=== PATIENT | female | born 1950 | race Caucasian/White ===

== ENCOUNTER 2019-10-13 09:27 | Outpatient (CLI) | payer MEDICARE, OTHER, SELFPAY ==
--- NOTE | ~2019-10-13 | US_ITS ---
EXAMINATION: US abdomen complete DATE: 10/13/2019 10:10 INDICATION: Liver cyst. TECHNIQUE: Multiple grayscale and Doppler ultrasound images of the abdomen were obtained. COMPARISON: CT abdomen and pelvis 08/22/2016 FINDINGS: The visualized portions of the head and body of the pancreas are normal. There is diffuse h epatic steatosis. The liver cyst seen on the prior CT is not visualized. There is normal flow in main portal vein. The gallbladder is normal in size. No gallstones or gallbladder wall thickening. There was no sonographic Michael sign. The common duct is normal and measures 5 mm. The kidneys are normal i n size. The spleen is normal in size. Abdominal aorta is normal in caliber. Inferior vena cava is nor mal. IMPRESSION: 1. Diffuse hepatic steatosis. Reviewed, dictated and finalized at location A.
== END 2019-10-13 09:28 | disposition home or self-care (01) ==
PROVIDERS: PCP Family Medicine; Visit Provider Physician Assistant Medical
DX: K76.89 Other specified diseases of liver (principal)
CPT/HCPCS: 76700

== ENCOUNTER 2019-11-02 10:09 | Outpatient (CLI) | payer MEDICARE, OTHER, SELFPAY ==
[2019-11-02 11:11] LABS: Add Urine Microscopic? YES; Appearance Urine Clear (Clear); Bilirubin Urine Negative (Negative); Blood Urine 1+ (Negative); Color Urine Yellow (Yellow); Glucose Urine UA Negative (Negative); Ketones Urine Trace mg/dL (Negative); Leukocyte Esterase Ur Negative LEU/UL (NEGATIVE); Mucus Urine Rare /lpf; Nitrate Urine Negative (Negative); Protein Urine Negative (Negative); RBC Urine 0-2 /hpf (0-2); Specific Grav Ur 1.013 (1.001-1.035); Squamous Epithelial Cell Urine Occasional /hpf (Few); Urobilinogen Urine Negative mg/dL (<2.0); WBC Urine 0-3 /hpf (0-3)
[2019-11-02 11:12] LABS: Albumin Level 4.1 g/dL (3.5-5.1); Blood Urea Nitrogen 19 mg/dL (7-17); Calcium 9.2 mg/dL (8.4-10.2); Carbon Dioxide 30 mmol/L (22-30); Chloride 106 mmol/L (98-107); Estimated Glomerular Filt Rate > 60; Glucose 99 mg/dL (65-105); Phosphorus 3.5 mg/dL (2.5-4.5); Potassium 4.6 mmol/L (3.4-5.0); Sodium 140 mmol/L (137-145)
== END 2019-11-02 10:10 | disposition home or self-care (01) ==
PROVIDERS: PCP Family Medicine; Visit Provider Internal Medicine Nephrology
DX: N20.0 Calculus of kidney (principal)
CPT/HCPCS: 36415; 80069; 81001

== ENCOUNTER 2019-11-02 10:15 | Outpatient (CLI) | payer MEDICARE, OTHER, SELFPAY ==
[2019-11-02 11:09] LABS: Alanine Aminotransferase 27 U/L (4-35); Albumin Level 4.1 g/dL (3.5-5.1); Alkaline Phosphatase 85 U/L (38-126); Aspartate Amino Transferase 37 U/L (14-36); Bilirubin,Total 0.6 mg/dL (0.2-1.3)
[2019-11-02 13:06] LABS: Hepatitis B Surface Antigen Negative (Negative)
[2019-11-02 13:12] LABS: HAV RESULT Negative (Negative); Hepatitis B Core IgM Result Negative (Negative)
[2019-11-02 13:24] LABS: Hepatitis C Virus Antibody Negative (Negative)
== END 2019-11-02 10:16 | disposition home or self-care (01) ==
PROVIDERS: PCP Family Medicine; Visit Provider Physician Assistant Medical
DX: R79.89 Other specified abnormal findings of blood chemistry (principal); K74.60 Unspecified cirrhosis of liver
CPT/HCPCS: 36415; 80069; 80074; 80076; 81001

== ENCOUNTER 2020-07-11 08:21 | Outpatient (CLI) | payer MEDICARE, OTHER, SELFPAY ==
[2020-07-11 09:13] LABS: Albumin Level 3.9 g/dL (3.5-5.1); Anion Gap 3 mmol/L (8-16); Blood Urea Nitrogen 23 mg/dL (7-17); Calcium 8.9 mg/dL (8.4-10.2); Carbon Dioxide 33 mmol/L (22-30); Chloride 106 mmol/L (98-107); Estimated Glomerular Filt Rate > 60; Glucose 99 mg/dL (65-105); Phosphorus 3.4 mg/dL (2.5-4.5); Potassium 4.9 mmol/L (3.4-5.0); Sodium 142 mmol/L (137-145)
[2020-07-11 09:14] LABS: Creatinine Urine 150.9 mg/dL; Total Protein Urine Random 10 mg/dL; Ur Ttl Prot Creatinine Ratio 0.07 mg/mg (0-0.20)
== END 2020-07-11 08:22 | disposition home or self-care (01) ==
PROVIDERS: PCP Family Medicine; Visit Provider Internal Medicine Nephrology
DX: N20.0 Calculus of kidney (principal)
CPT/HCPCS: 36415; 80069; 82570; 84156

== ENCOUNTER 2020-09-28 14:53 | Outpatient (CLI) | payer MEDICARE, OTHER, SELFPAY ==
--- NOTE | ~2020-09-28 | MR_ITS ---
EXAMINATION: MR wrist LT wo con DATE: 09/28/2020 15:49 INDICATION: Left wrist mass with pain and difficulty gripping with the left hand post prior cyst brian eve. TECHNIQUE: Magnetic resonance imaging (MRI) of the left wrist was performed without intravenous contr ast. Sequences performed include axial PD-weighted FSE and PD-weighted FS FSE, coronal PD-weighted FS FSE and T1-weighted SE, and sagittal PD-weighted FS FSE and PD-weighted FSE. COMPARISON: Left wrist radiographs dated 09/17/2020 FINDINGS: Intrinsic ligaments: The lunotriquetral ligament is normal. Increased signal in the central membranous portion of the scap holunate ligament consistent with partial tear. The dorsal and volar components appear to remain inta ct. Triangular fibrocartilage complex (TFCC): There is partial tear along the radial side as well as the ulnar articular surface of the central fib rocartilaginous disc of the triangular fibrocartilage complex. Additional partial tear at the foveal attachment. The ulnar styloid attachment and the dorsal and volar radioulnar ligaments remain normal. The ulnar collateral ligament, ulnotriquetral ligament and meniscal homologue are normal. The exten sor carpi ulnaris tendon sheath is normal. Extensor wrist: Extensor tendons of the wrist are normal. No tenosynovitis. Flexor wrist: The flexor tendons of the wrist are normal. No abnormality in the carpal tunnel with normal median n erve. Guyon's canal: Guyon's canal including the ulnar nerve and artery are normal. 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 There is mild cystic change along the volar rim of the scaphoid fossa of the distal radius along the footplate of the thickened palmar radiocarpal ligament. There is a multilobulated ganglion cyst arising along the palmar margin of the palmar radiocarpal ligament which extends approximately 2 .8 cm medial to lateral, 1.5 cm proximal to distal along the palmar aspect of the radial two thirds o f the distal radius and extending 1.6 cm deep to superficial between the abductor pollicis longus ten don and the flexor carpi radialis tendon. IMPRESSION: 1. Large multilobulated ganglion cyst at the palmar aspect of the distal radius arising along the kristopher tplate of the palmar radiocarpal ligament and extending over a distance of 2.8 x 1.5 x 1.6 cm. 2. Partial tear of the central fibrocartilaginous disc and foveal attachment of the triangular fibroc artilage complex. 3. Partial tear of the central component of the scapholunate ligament with intact dorsal and volar co mponents. 2. 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 Reviewed, dictated and finalized at location A. IMPRESSION: 1. Large multilobulated ganglion cyst at the palmar aspect of the distal radius arising along the footplate of the palmar radiocarpal ligament and extending o mariah a distance of 2.8 x 1.5 x 1.6 cm. 2. Partial tear of the central fibrocartilaginous disc and foveal attachment of the triangular fibrocartilage complex. 3. Partial tear of the central component of the scapholunate ligament with inta ct dorsal and volar components. 2. 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
== END 2020-09-28 14:54 | disposition home or self-care (01) ==
PROVIDERS: PCP Family Medicine; Visit Provider Orthopaedic Surgery
DX: M19.032 Primary osteoarthritis, left wrist (principal)
CPT/HCPCS: 73221

== ENCOUNTER 2020-11-14 09:26 | Outpatient (CLI) | payer MEDICARE, OTHER, SELFPAY ==
--- NOTE | 2020-11-14 09:47 | ECG_ITS ---
Measurements Intervals Spring Rate: 60 P: 16 NE: 183 QRS: -9 QRSD: 86 T: 8 QT: 420 QTc: 420 Interpretive Statements SINUS RHYTHM DELAYED PRECORDIAL R/S TRANSITION VOLTAGE CRITERIA FOR LVH BORDERLINE T WAVE ABNORMALITY- ANT/INF LEADS BORDERLINE ECG Electronically Signed On 11-14-2020 10:00:17 CDT by Getachew Polk D.O.
== END 2020-11-14 09:27 | disposition home or self-care (01) ==
LOC: ANHSURGERY 09:31
PROVIDERS: PCP Family Medicine; Visit Provider Orthopaedic Surgery
DX: Z01.810 Encounter for preprocedural cardiovascular examination (principal); E78.00 Pure hypercholesterolemia, unspecified
CPT/HCPCS: 93005

== ENCOUNTER → 2020-11-20 01:22 | Outpatient (CLI) | payer MEDICARE, OTHER, SELFPAY ==
[2020-11-21 15:37] LABS: SARS-CoV-2 RNA PCR Negative
== END ==
PROVIDERS: PCP Family Medicine; Visit Provider Orthopaedic Surgery
DX: Z01.812 Encounter for preprocedural laboratory examination (principal); Z20.822 Contact with and (suspected) exposure to COVID-19
CPT/HCPCS: C9803; U0003; U0005

== ENCOUNTER 2020-11-23 01:36 | Day surgery (SDC) | payer MEDICARE, OTHER, SELFPAY ==
[2020-11-12 10:23] VITALS: BMI 34.3
[2020-11-23] VITALS (7 sets, daily range): BP systolic 125–152; BP diastolic 62–85; PULSE 61–70; RESP 12–16; TEMP 35.7–36.2; O2SAT 94–100
[2020-11-23] MEDS: CELECOXIB 200 MG CAPSULE PO (06:25)
[2020-11-23] MEDS: ACETAMINOPHEN 500 MG TABLET 1000 MG PO (06:25)
[2020-11-23] MEDS: KETOROLAC 15 MG/ML VIAL (*BKC) IV PUSH (06:26)
[2020-11-23] MEDS: LACTATED RINGERS 1,000 ML 30 ML IV CONT ×2 (06:32→10:05)
--- NOTE | 2020-11-23 06:58 | WPDANESEPPF ---
Anes - Initial Pre Proc Eval Procedure: Operation Date: 11/23/20 07:30 Proposed Procedures p Excision Mass Left Wrist - Trav Becerra MD Date/Time: 11/23/20 06:58 Surgeon: Trav Becerra MD Pre Op Diagnosis: left wrist mass/ganglion cyst Patient Data Age: 70 Gender: F Height: 1.63 m Weight: 90.75 kg Allergies Allergy/AdvReac Type Severity Reaction Status Date / Time No Known Allergies Allergy Verified 11/12/20 09:43 Home Medications Medication Instructions Recorded Confirmed Type cranberry extract 500 mg capsule 500 mg PO DAILY cap 09/18/20 11/12/20 History turmeric 1 tab-cap PO DAILY 09/18/20 11/12/20 History omeprazole 40 mg capsule,delayed 40 mg PO DAILY #90 cap 11/07/20 11/12/20 Rx release Lacto.acidophilus-Bif.animalis 1 cap PO DAILY 11/12/20 11/12/20 History [Daily Probiotic] aspirin [Adult Low Dose Aspirin] 81 mg PO HS 11/12/20 11/12/20 History cholecalciferol (vitamin D3) 125 mcg PO DAILY 11/12/20 11/12/20 History magnesium 15 mg PO DAILY 11/12/20 11/12/20 History multivitamin,jk-ycqu-yqojgmgd 1 tablet PO DAILY 11/12/20 11/12/20 History [Complete Multivitamin] naproxen sodium [Aleve] 440 mg PO DAILY 11/12/20 11/12/20 History vitamin B complex [B Complex] 1 cap PO DAILY 11/12/20 11/12/20 History Patient hx anesthesia problems: none Family hx anesthesia problems: none PMFSH Past Medical History Medical History 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 BMI 34.0-34.9,adult Essential hypertension Ganglion cyst Liver cyst Mass of left wrist Mitral valve prolapse Mixed hyperlipidemia Hayes's neuroma of both feet Screening for breast cancer Screening for osteoporosis Surgical History Surgical History (Updated 11/23/20 @ 06:58 by Tacos Arenas MD) H/O abdominoplasty H/O: hysterectomy History of surgical removal of skin lesion 2020 Family History Family History Sibling Hypertension Family history of diabetes mellitus in first degree relative Family history of lung cancer Father Family history of heart disease in male family member before age 55 Mother Family history of heart disease in male family member before age 55 Other Cerebrovascular accident Diabetes mellitus Family history of arthritis Family history of cardiovascular disease Social History Social History Smoking packs per day: 0.5 Smoking cigarettes per day: 10.0 Years smoked: 15 Smoking pack-years: 7.50 Smoking status: Former smoker Tobacco type: cigarettes Smoking end date: 06/01/04 Alcohol intake: current Drinks per week: 4 Substance use: never Substance use type: does not use Living arrangements: with family Spiritual care concerns: No Anes - Eval Final PreProcedure Day of Procedure 11/23/20 06:58 Patient weight: obese Heart: regular rate and rhythm Lungs: clear to auscultation Airway: Mallampati scale class 1 Neurological: alert and oriented Last oral intake: >/= 8 hours ASA classification: III Emergent: no Anesthetic plan: proceed Anesthesia type and monitoring: general LMA and standard monitoring Informed Consent: The patient's anesthetic plan and its attendant risks and benefits were discussed with the patient/family/POA. Questions were solicited and answers provided to the satisfaction of the patient/family/POA.
--- NOTE | 2020-11-23 08:15 | WPDHPUPDATE1 ---
History and Physical Update Update Date/Time: 11/23/20 08:15 History and Physical has been reviewed, including an updated exam of the patient. There are NO changes in the patient's condition. Risks, benefits, and alternatives have been discussed and questions answered. Patient agrees to proceed with procedure.
[2020-11-23] MEDS: ceFAZolin 2 GM/D5W 50 ML 2 GM/50 ML BAG IVPB (08:25)
[2020-11-23] MEDS: BUPIVACAINE HCL 0.5% PF 30 ML VIAL INFILTRATE (08:41)
--- NOTE | 2020-11-23 10:21 | W.PM.PROC2 ---
Procedure Note - Detailed Date of Procedure 11/23/20 Pre-op Diagnosis left wrist mass/ganglion cyst Post-op Diagnosis same Procedure Performed LEFT WRIST MASS Surgeon Trav Becerra MD Anesthesia general Description of Procedure THE LEFT UPPER EXTREMITY WAS PREPPED AND DRAPED IN THE STERILE FASHION. THE OLD SCAR WAS IDENTIFIED OVER THE RADIAL VOLAR WRIST. INCISION WAS MADE OVER THE OLD SCAR DOWN TO THE SUB CUTANEOUS TISSUES. DISSECTION CONTINUED UNTIL THE MASS WAS IDENTIFIED. IT APPEARED TO BE A GANGLION CYST. THE RADIAL ARTERY WAS WRAPPED AROUND THE CYST AND WAS DISSECTED UNTIL IT WAS COMPLETELY FREE FORM THE CYST. THE TOURNIQUET WAS DEFLATED AND THE ARTERY WAS OBSERVED FOR INTEGRITY AND PULSATION. IT WAS PULSATING WELL. DISSECTION THEN CONTINUED UNTIL THE STALK OF THE CYST WAS IDENTIFIED AND FOLLOWED TO THE RADIO CARPAL JOINT. WITHOUT VIOLATING THE CAPSULE OF THE JOINT THE STALK WAS EXCISED AND THE CYST WAS REMOVED IN ITS ENTIRETY. THE WOUND WAS WASHED AN THE BLEEDERS WERE CAUTERIZED. THE SUB-CUTANEOUS LAYER WAS REPAIRED WITH 3-0 VICRYL, THEN THE SKIN WAS APPROXIMATED WITH 4-0 NYLON. THE WOUND WAS WASHED AND STERILE DRESSING WAS APPLIED. THE PATIENT WAS EXTUBATED. THE SPECIMEN WAS SENT FOR PATHOLOGY. Estimated Blood Loss -5.0 Complications No immediate complications Condition stable Disposition PACU
[2020-11-23] MEDS: oxyCODONE HCL (*CRX) 5 MG TAB IR PO (11:07)
== END 2020-11-23 11:25 | disposition home or self-care (01) ==
PROVIDERS: PCP Family Medicine; Visit Provider Orthopaedic Surgery
PROC: (CPT 25111; principal; 2020-11-23 07:30)
DX: M67.432 Ganglion, left wrist (principal); I10 Essential (primary) hypertension; E78.2 Mixed hyperlipidemia; I34.1 Nonrheumatic mitral (valve) prolapse; Z87.891 Personal history of nicotine dependence; E66.9 Obesity, unspecified; Z68.34 Body mass index [BMI] 34.0-34.9, adult
CPT/HCPCS: 25111; 88304; 88305; A9270; J0690; J1100; J1885; J2250; J2405; J2704; J3010; J7120

== ENCOUNTER 2020-11-30 08:35 | Outpatient (CLI) | payer MEDICARE, OTHER, SELFPAY ==
[2020-11-30 09:42] LABS: Cholesterol 272 mg/dL (0-200); HDL Direct 43 mg/dL; Triglycerides 220 mg/dL (<150)
[2020-11-30 09:53] LABS: LDL Cholesterol Direct 155 mg/dL
== END 2020-11-30 08:36 | disposition home or self-care (01) ==
LOC: ANHLAB 08:40
PROVIDERS: PCP Family Medicine; Visit Provider Physician Assistant Medical
DX: E78.2 Mixed hyperlipidemia (principal)
CPT/HCPCS: 36415; 80061

== ENCOUNTER 2020-12-07 01:52 | Day surgery (SDC) | payer MEDICARE, OTHER, SELFPAY ==
[2020-11-30 15:12] VITALS: BMI 34.3
[2020-12-07 06:26] VITALS: BP 136/71; PULSE 68; RESP 18; TEMP 36.2; O2SAT 100
[2020-12-07] MEDS: LACTATED RINGERS 1,000 ML 30 ML IV CONT (06:49)
--- NOTE | 2020-12-07 07:04 | WPDANESEPPF ---
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 Patient Data Age: 70 Gender: F Height: 1.63 m Weight: 91.4 kg Allergies Allergy/AdvReac Type Severity Reaction Status Date / Time No Known Allergies Allergy Verified 12/06/20 08:57 Home Medications Medication Instructions Recorded Confirmed Type cranberry extract 500 mg capsule 500 mg PO DAILY cap 09/18/20 12/06/20 History turmeric 1 tab-cap PO DAILY 09/18/20 12/06/20 History omeprazole 40 mg capsule,delayed 40 mg PO DAILY #90 cap 11/07/20 12/06/20 Rx release Daily Probiotic 1 cap PO DAILY 11/12/20 12/06/20 History aspirin 81 mg PO HS 11/12/20 12/06/20 History cholecalciferol (vitamin D3) 125 mcg PO DAILY 11/12/20 12/06/20 History magnesium 15 mg PO DAILY 11/12/20 12/06/20 History multivitamin,em-rgpx-qgiqunja 1 tablet PO DAILY 11/12/20 12/06/20 History vitamin B complex 1 cap PO DAILY 11/12/20 12/06/20 History amoxicillin 875 mg-potassium 1 tablet PO Q12H 10 Days #20 tablet 11/30/20 12/06/20 Rx clavulanate 125 mg tablet Patient hx anesthesia problems: none Family hx anesthesia problems: none PMFSH Past Medical History Medical History 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 BMI 34.0-34.9,adult Essential hypertension Ganglion cyst Liver cyst Mass of left wrist Mitral valve prolapse Mixed hyperlipidemia Hayes's neuroma of both feet Screening for breast cancer Screening for osteoporosis Surgical History Surgical History H/O abdominoplasty H/O: hysterectomy History of surgical removal of skin lesion 2020 Family History Family History Sibling Hypertension Family history of diabetes mellitus in first degree relative Family history of lung cancer Father Family history of heart disease in male family member before age 55 Mother Family history of heart disease in male family member before age 55 Other Cerebrovascular accident Diabetes mellitus Family history of arthritis Family history of cardiovascular disease Social History Social History Smoking packs per day: 0.5 Smoking cigarettes per day: 10.0 Years smoked: 15 Smoking pack-years: 7.50 Tobacco type: cigarettes Smoking end date: 06/01/04 Alcohol intake: current Drinks per week: 4 Substance use: never Substance use type: does not use Living arrangements: with family Spiritual care concerns: No Anes - Eval Final PreProcedure Day of Procedure 12/07/20 07:04 Patient weight: obese Heart: regular rate and rhythm Lungs: clear to auscultation Airway: Mallampati scale class II Neurological: alert and oriented Last oral intake: >/= 8 hours ASA classification: III Emergent: no Anesthetic plan: proceed Anesthesia type and monitoring: general LMA and standard monitoring Informed Consent: The patient's anesthetic plan and its attendant risks and benefits were discussed with the patient/family/POA. Questions were solicited and answers provided to the satisfaction of the patient/family/POA.
--- NOTE | 2020-12-07 07:12 | WPDHPUPDATE1 ---
History and Physical Update Update Date/Time: 12/07/20 07:12 History and Physical has been reviewed, including an updated exam of the patient. There are NO changes in the patient's condition. Risks, benefits, and alternatives have been discussed and questions answered. Patient agrees to proceed with procedure.
[2020-12-07] MEDS: ceFAZolin 2 GM/D5W 50 ML 2 GM/50 ML BAG IVPB (07:26)
[2020-12-07] MEDS: BUPIVACAINE HCL 0.5% PF 30 ML VIAL 20 ML INFILTRATE (07:35)
--- NOTE | 2020-12-07 08:37 | P.OP_ITS ---
Procedure Note - Detailed Date of Procedure 12/07/20 Pre-op Diagnosis Mortons Neuroma right & left foot Post-op Diagnosis same Procedure Performed Excision of Mortons Neuroma right and left foot Surgeon Chirag Fletcher JR, DPM Anesthesia MAC and local Indications Pain and paresthesias to the third intermetatarsal space bilaterally Description of Procedure Under mild sedation, the patient was brought in to the operating room, placed on the operating table in the supine position. A pneumatic ankle tourniquet was placed about the patient's left ankle. Following IV sedation , local anesthesia was obtained about the left lower extremity utilizing 10 ccs of a a one to one mixture of 0.5% Marcaine plain and 2% Lidocaine plain with a ring block about the left and right ankle. The foot was then scrubbed, prepped, and draped in the usual aseptic manner. An Esmarch bandage was then used to exsanguinate the patient's foot and the pneumatic ankle tourniquet was then inflated. An incision was made along the dorsal 3rd inter metarsal space. All bleeders wer e cauterized as necessary. The Deep transverse intermetatarsal ligament was severed. Next Dissection was continued deep to the plantar nerve which was severely hypertrophied and amorphous. It was dissected proximal to the central metatarsal shaft area and transected next the distal branches were dissected and transected to the affected third and fourth digits. The neural tissue was sent for gross and histo. The Deep subcutaneus tissue was reapproximated with 4.0 Vicryl and the skin was reapproximated with 4.0 Monocryl. The exact procedure was duplicated for the right foot. The nerve was only moderately hypertrophied with minimal fibrosis noted. Upon completion of the procedure, the dorsal incision was dressed with Steri- Strips, Adaptic, 4x4s, Kerlix, and Coban. The pneumatic ankle tourniquet was then deflated and a prompt hyperemic response was noted to all digits of the left and right foot. The surgical shoe was then applied. The patient did very well with the procedure and the anesthesia. She was transferred to the recovery room with vital signs stable and vascular status intact to all toes of the affected foot. Following a period of postoperative monitoring, the patient will be discharged home on the following written and oral postoperative instructions: 1. The patient should keep the dressing clean, dry, and intact. Use a cast protector bag with showers. 2. The patient will be strictly protected weight bearing with a surgical shoe. 3. Patient should ice and elevate the right and left foot when at rest. 4. The patient is to contact Dr. Fletcher for all postop care and if any problems arise. 5. Prescriptions were written for Percocet 5/325 dispensed 40 to be taken 1 p.o. q.4-6 hours as needed for severe pain. Estimated Blood Loss 1 Drains No Packing No Pathology yes (Neural tissue was to sent for gross and histopathology from 3rd intermet atarsal space bilaterally) Complications No immediate complications Condition stable Disposition PACU
[2020-12-07 08:46] VITALS: BP 107/60; PULSE 52; RESP 14; O2SAT 97
[2020-12-07 09:15] VITALS: BP 119/62; PULSE 50; RESP 18; O2SAT 96
[2020-12-07 09:45] VITALS: BP 130/71; PULSE 52; RESP 18
== END 2020-12-07 10:30 | disposition home or self-care (01) ==
PROVIDERS: PCP Family Medicine; Visit Provider Podiatrist Foot & Ankle Surgery
PROC: (CPT 28080; principal; 2020-12-07 07:30)
DX: G57.63 Lesion of plantar nerve, bilateral lower limbs (principal); R20.2 Paresthesia of skin; Z79.82 Long term (current) use of aspirin; K76.89 Other specified diseases of liver; I34.1 Nonrheumatic mitral (valve) prolapse; E78.2 Mixed hyperlipidemia; K22.70 Barrett's esophagus without dysplasia; F17.210 Nicotine dependence, cigarettes, uncomplicated; E66.9 Obesity, unspecified; Z68.34 Body mass index [BMI] 34.0-34.9, adult; M19.90 Unspecified osteoarthritis, unspecified site; K21.9 Gastro-esophageal reflux disease without esophagitis
CPT/HCPCS: 28080; 88304; J0690; J2250; J2405; J2704; J3010; J7120

== ENCOUNTER 2020-12-11 12:47 | Outpatient (CLI) | payer MEDICARE, OTHER, SELFPAY ==
--- NOTE | 2020-12-11 12:55 | ECHO_ITS ---
Patient Info Name: Cecilia Rees Age: 70 years : 1950 Gender: Female Ht: 64 in Wt: 200 lbs BSA: 2.06 m2 HR: 73 bpm BP: 163 / 97 mmHg Heart Rhythm: Sinus Rhythm Technical Quality: Good Exam Date: 12/11/2020 1:12 PM Exam Location: [facility] Patient Status: Outpatient Admit Date: 12/11/2020 Staff Ordering Physician: Addis Bishop Adjunct Professor Of Law: Lilibeth Martinez RDCS Attending Provider: Addis Bishop Exam Type: CA echo doppler color flow Study Info Complete two-dimensional, color flow and Doppler transthoracic echocardiogram is performed. Summary 1. Complete two-dimensional, color flow and Doppler transthoracic echocardiogram is performed. 2. Left ventricular chamber dimension is normal. 3. Ventricular septum is sigmoid shaped. No LVOT obstruction. 4. Left ventricular systolic function is normal, estimated at 60-65%. 5. The left ventricular diastolic function is grade I diastolic dysfunction. 6. E/e' 12 is mildly elevated. 7. Left atrial chamber dimension is moderately enlarged. 8. There is trace pulmonic regurgitation. 9. The aortic root size at the sinus of Valsalva is borderline dilated at 4.0 cm. 10. Small atheroma in anterior aortic root. Left Ventricle E/e' 12 is mildly elevated. Ventricular septum is sigmoid shaped. No LVOT obstruction. Left ventricular chamber dimension is normal. Left ventricular systolic function is normal, estimated at 60-65%. The left ventricular diastolic function is grade I diastolic dysfunction. Right Ventricle Right ventricular chamber dimension is normal. Right ventricular systolic function is normal. Left Atria Left atrial chamber dimension is moderately enlarged. Right Atria Right atrial chamber dimension is normal. Aortic Valve The aortic valve is trileaflet. There is no aortic valve stenosis. There is no aortic valve regurgitation. Pulmonic Valve There is trace pulmonic regurgitation. Mitral Valve There is no mitral valve stenosis. There is no mitral valve regurgitation. Tricuspid Valve There is no tricuspid valve regurgitation. Pericardium/Pleural There is no pericardial effusion. Inferior Vena Cava Normal inferior vena cava with >50% collapse upon inspiration consistent with normal right atrial pressure, 5 mmHg. Aorta The aortic root size at the sinus of Valsalva is borderline dilated at 4.0 cm. Small atheroma in anterior aortic root. Left Ventricular Outflow Tract Name Value Normal LVOT 2D LVOT Diameter 2.0 cm LVOT Doppler LVOT Peak Gradient 3 mmHg LVOT Mean Gradient 1 mmHg LVOT VTI 18 cm LVOT VTI/AV VTI Ratio 0.7 LVOT Stroke Volume 55 ml LVOT CO 3.3 l/min LVOT CI 1.6 l/min/m2 Pulmonic Valve Name Value Normal
== END 2020-12-11 12:48 | disposition home or self-care (01) ==
PROVIDERS: PCP Family Medicine; Visit Provider Nurse Practitioner Family
DX: I34.1 Nonrheumatic mitral (valve) prolapse (principal)
CPT/HCPCS: 93306

== ENCOUNTER 2021-01-23 09:04 | Outpatient (CLI) | payer MEDICARE, OTHER, SELFPAY ==
--- NOTE | ~2021-01-23 | MM_ITS ---
EXAMINATION: MM screening henrietta BI w [facility] HISTORY: Screening mammogram TECHNIQUE: Craniocaudal and mediolateral oblique 3-D tomosynthesis images were obtained and synthetic 2-D images were generated. CAD analysis was submitted and interpreted. COMPARISON: No prior mammogram is available for comparison at this institution. BREAST PARENCHYMAL COMPOSITION: The breasts are almost entirely fatty. FINDINGS: RIGHT BREAST: There is a mass in the anterior third of the slightly outer breast.. LEFT BREAST: There is no evidence of suspicious mass, calcification, or architectural distortion to s uggest malignancy. IMPRESSION: 1. Right breast mass which may represent the patient's baseline however no comparison is currently av ailable. 2. Comparison with prior mammograms is necessary. BI-RADS Category 0: Incomplete: Needs comparison with prior mammograms. Reviewed, dictated and finalized at location A. IMPRESSION: 1. Right breast mass which may represent the patient's baseline however no comp arison is currently available. 2. Comparison with prior mammograms is necessary. BI-RADS Category 0: Incomplete: Needs comparison with prior mammograms.
--- NOTE | ~2021-01-23 | DEXA_ITS ---
Bone Density Report Name: Cecilia Rees Age: 70 Sex: Female Ethnicity: White Date of : 1950 Indication: postmenopausal; height loss; hysterectomy; Referring Provider: Anyi aRmey Study: Bone densitometry was performed. Exam Date: January 23, 2021 Accession number: [id number] Bone Density: Region BMD T-score Z-score Classification AP Spine (L1, L2) 1.198 2.0 3.8 Normal Femoral Neck (Left) 0.851 0.0 1.7 Normal Total Hip (Left) 1.056 0.9 2.3 Normal Total Hip Bilateral Avg 1.047 0.8 2.3 Normal Femoral Neck (Right) 0.879 0.3 2.0 Normal Total Hip (Right) 1.037 0.8 2.2 Normal World Health Organization criteria for BMD impression classify patients as: Normal (T-score at or above -1.0), Osteopenia (T-score between -1.0 and -2.5), or Osteoporosis (T-score at or below -2.5). 10-year Fracture Risk: FRAX not reported because: All T-scores for Spine Total, Hip Total, Femoral Neck at or above -1.0 Previous Exams: Region Exam Age BMD T-score BMD Change BMD Change Date g/cm2 vs Baseline vs Previous AP Spine(L1, L2) 01/23/2021 70 1.198 2.0 -0.069(-5.5%)# -0.008(-0.7%) 02/18/2017 66 1.206 2.1 -0.061(-4.8%)# -0.061(-4.8%)# 03/21/2011 60 1.267 2.6 Total Hip(Left) 01/23/2021 70 1.056 0.9 0.003(0.2%)# 0.007(0.7%) 02/18/2017 66 1.049 0.9 -0.004(-0.4%)# -0.004(-0.4%)# 03/21/2011 60 1.053 0.9 Total Hip(Right) 01/23/2021 70 1.037 0.8 -0.058(-5.3%)# -0.022(-2.1%) 02/18/2017 66 1.059 1.0 -0.036(-3.3%)# -0.036(-3.3%)# 03/21/2011 60 1.095 1.3 *Denotes significance at 95% confidence level, LSC for AP Spine = 0.022 g/cm2, LSC for Total Hip = 0.027 g/cm2 Clinical Information Provided by Patient: Has used the following medications: Vitamin D Has the following medical conditions: Hysterectomy Patient maximum height was 64 Menopause Age: 55 No regular weight bearing exercise Onset of menses at age 15 Number of children 4 Impression: The patient has normal bone mass. No significant bone loss was observed. Discussion: BONE DENSITY IS ABOVE THE MINIMUM DESIRABLE LEVEL AT ALL SKELETAL SITES TESTED. This patient?s bone mineral density is above the minimum desirable level (T-score -1.0 or better) at all sites measured. The patient should follow a healthful lifestyle (good nutrition with adequate calcium and vitamin D, and appropriate weight-bearing exercise). Follow-Up: Consider repeating this study
--- NOTE | ~2021-01-23 | DEXA_ITS ---
Bone Density Report Name: Cecilia Rees Age: 70 Sex: Female Ethnicity: White Date of : 1950 Indication: postmenopausal; height loss; hysterectomy; Referring Provider: Anyi Ramey Study: Bone densitometry was performed. Exam Date: January 23, 2021 Accession number: [id number] Bone Density: Region BMD T-score Z-score Classification AP Spine (L1, L2) 1.198 2.0 3.8 Normal Femoral Neck (Left) 0.851 0.0 1.7 Normal Total Hip (Left) 1.056 0.9 2.3 Normal Total Hip Bilateral Avg 1.047 0.8 2.3 Normal Femoral Neck (Right) 0.879 0.3 2.0 Normal Total Hip (Right) 1.037 0.8 2.2 Normal World Health Organization criteria for BMD impression classify patients as: Normal (T-score at or above -1.0), Osteopenia (T-score between -1.0 and -2.5), or Osteoporosis (T-score at or below -2.5). 10-year Fracture Risk: FRAX not reported because: All T-scores for Spine Total, Hip Total, Femoral Neck at or above -1.0 Previous Exams: Region Exam Age BMD T-score BMD Change BMD Change Date g/cm2 vs Baseline vs Previous AP Spine(L1, L2) 01/23/2021 70 1.198 2.0 -0.069(-5.5%)# -0.008(-0.7%) 02/18/2017 66 1.206 2.1 -0.061(-4.8%)# -0.061(-4.8%)# 03/21/2011 60 1.267 2.6 Total Hip(Left) 01/23/2021 70 1.056 0.9 0.003(0.2%)# 0.007(0.7%) 02/18/2017 66 1.049 0.9 -0.004(-0.4%)# -0.004(-0.4%)# 03/21/2011 60 1.053 0.9 Total Hip(Right) 01/23/2021 70 1.037 0.8 -0.058(-5.3%)# -0.022(-2.1%) 02/18/2017 66 1.059 1.0 -0.036(-3.3%)# -0.036(-3.3%)# 03/21/2011 60 1.095 1.3 *Denotes significance at 95% confidence level, LSC for AP Spine = 0.022 g/cm2, LSC for Total Hip = 0.027 g/cm2 Clinical Information Provided by Patient: Has used the following medications: Vitamin D Has the following medical conditions: Hysterectomy Patient maximum height was 64 Menopause Age: 55 No regular weight bearing exercise Onset of menses at age 15 Number of children 4 Impression: The patient has normal bone mass. No significant bone loss was observed. Discussion: BONE DENSITY IS ABOVE THE MINIMUM DESIRABLE LEVEL AT ALL SKELETAL SITES TESTED. This patient?s bone mineral density is above the minimum desirable level (T-score -1.0 or better) at all sites measured. The patient should follow a healthful lifestyle (good nutrition with adequate calcium and vitamin D, and appropriate weight-bearing exercise). Follow-Up: Consider repeating this study
== END 2021-01-23 09:05 | disposition home or self-care (01) ==
PROVIDERS: PCP Family Medicine; Visit Provider Physician Assistant Medical
DX: Z12.31 Encounter for screening mammogram for malignant neoplasm of breast (principal); Z78.0 Asymptomatic menopausal state; R92.8 Other abnormal and inconclusive findings on diagnostic imaging of breast
CPT/HCPCS: 77063; 77067; 77080

== ENCOUNTER 2021-01-31 07:05 | Outpatient (CLI) | payer MEDICARE, OTHER, SELFPAY ==
--- NOTE | ~2021-01-31 | XR_ITS ---
EXAMINATION: XR abdomen/kub 1V INDICATION: Calculus of kidney TECHNIQUE: Supine views of the abdomen were obtained on 2 radiographs. COMPARISON: 05/11/2019 FINDINGS: There are multiple phleboliths of the pelvis. No definite urolithiasis is identified. The b owel gas pattern is normal. Moderate lumbar spondylosis is noted. There is mild osteoarthritis of the hips. IMPRESSION: 1. No definite urolithiasis identified. Reviewed, dictated and finalized at location A.
[2021-01-31 08:11] LABS: Add Urine Microscopic? YES; Appearance Urine Clear (Clear); Bilirubin Urine Negative (Negative); Blood Urine Negative (Negative); Color Urine Yellow (Yellow); Glucose Urine UA Negative (Negative); Ketones Urine Negative (Negative); Leukocyte Esterase Ur 1+ LEU/UL (NEGATIVE); Mucus Urine Rare /lpf; Nitrate Urine Negative (Negative); Protein Urine Negative (Negative); Specific Grav Ur 1.015 (1.001-1.035); Squamous Epithelial Cell Urine Occasional /hpf (Few); Urobilinogen Urine Negative mg/dL (<2.0)
[2021-01-31 08:14] LABS: Albumin Level 3.9 g/dL (3.5-5.1); Anion Gap 12 mmol/L (8-16); Blood Urea Nitrogen 18 mg/dL (7-17); Calcium 8.9 mg/dL (8.4-10.2); Carbon Dioxide 28 mmol/L (22-30); Chloride 100 mmol/L (98-107); Estimated Glomerular Filt Rate > 60; Glucose 103 mg/dL (65-110); Phosphorus 3.8 mg/dL (2.5-4.5); Potassium 4.4 mmol/L (3.4-5.0); Sodium 140 mmol/L (137-145); Uric Acid 5.8 mg/dL (2.5-7.5)
== END 2021-01-31 07:06 | disposition home or self-care (01) ==
PROVIDERS: PCP Family Medicine; Visit Provider Internal Medicine Nephrology
DX: N20.0 Calculus of kidney (principal)
CPT/HCPCS: 36415; 74018; 80069; 81001; 84550

== ENCOUNTER 2021-02-02 08:31 | Outpatient (CLI) | payer MEDICARE, OTHER, SELFPAY | END 2021-02-02 08:32 | disposition home or self-care (01) | PROVIDERS: PCP Family Medicine; Visit Provider Internal Medicine Nephrology | DX: N20.0 Calculus of kidney (principal) | CPT/HCPCS: 36415; 82340; 82507; 82570; 83735; 83945; 83986; 84105; 84133; 84300; 84392; 84560 ==

== ENCOUNTER 2021-02-21 12:33 | Outpatient (CLI) | payer MEDICARE, OTHER, SELFPAY ==
--- NOTE | ~2021-02-21 | MM_ITS ---
EXAMINATION: MM diagnostic henrietta RT w hseldon HISTORY: Right breast mass in anterior third of slightly outer breast reported on 01/23/2021 screening mammogram TECHNIQUE: Additional 3-D tomosynthesis images of the right breast were performed and synthetic 2-D i mages were generated. CAD analysis was submitted and interpreted. COMPARISON: 01/23/2021 bilateral digital screening mammogram FINDINGS: There is a 4 mm circumscribed opacity situated anteriorly in the outer mid right breast mas s from the lateral subareolar area. There is a radiolucent hilus. This is likely a benign small lymph node. IMPRESSION: 1. Probably benign 4 mm anterior lateral mid right breast probable benign lymph node 2. 6 month diagnostic right mammogram follow-up is recommended BI-RADS category 3, probably benign findings. Reviewed, dictated and finalized at location A.
== END 2021-02-21 12:34 | disposition home or self-care (01) ==
PROVIDERS: PCP Family Medicine; Visit Provider Physician Assistant Medical
DX: R92.8 Other abnormal and inconclusive findings on diagnostic imaging of breast (principal)
CPT/HCPCS: 77061; 77065; G0279

== ENCOUNTER 2021-02-21 13:30 | Outpatient (CLI) | payer MEDICARE, OTHER, SELFPAY ==
--- NOTE | ~2021-02-21 | CT_ITS ---
EXAMINATION: CT abdomen pelvis w con DATE: 02/21/2021 14:03 INDICATION: Left lower quadrant abdominal pain. TECHNIQUE: Computed tomography (CT) of the abdomen and pelvis was performed with 100 mL Omnipaque 350 intravenous contrast. Automated exposure control and iterative reconstruction technique were employe d. The dose-length product was 860.84 mGy-cm. COMPARISON: CT abdomen and pelvis 08/22/2016 FINDINGS: The visualized portions of the lung bases demonstrate mild atelectasis. No pleural effusion . The heart size is normal. No pericardial effusion. There is a moderate-sized sliding hiatal hernia. There is diffuse hepatic steatosis. The liver, spleen, pancreas, and adrenal glands are normal. Ther e are cysts in the kidneys including peripelvic cysts measuring up to 3.3 cm on the right. There are scattered diverticula in the colon. There is a small area of old fat necrosis adjacent to descending colon. There is fat stranding around a diverticulum of descending colon, consistent with diverticulit is. There are no dilated loops of bowel. The appendix is not visualized. There are no pathologically enlarged lymph nodes. There is no free intraperitoneal fluid. There is moderate thoracic and lumbar s pondylosis. IMPRESSION: 1. Mild acute diverticulitis of descending colon. No perforation or abscess. Reviewed, dictated and finalized at location A.
== END 2021-02-21 13:31 | disposition home or self-care (01) ==
PROVIDERS: PCP Family Medicine; Visit Provider Internal Medicine Gastroenterology
DX: R10.31 Right lower quadrant pain (principal); K92.1 Melena; K57.32 Diverticulitis of large intestine without perforation or abscess without bleeding
CPT/HCPCS: 74177; 77061; 77065; G0279; Q9967

== ENCOUNTER 2021-08-05 07:13 | Outpatient (CLI) | payer MEDICARE, OTHER, SELFPAY ==
[2021-08-05 07:58] LABS: Add Urine Microscopic? YES; Appearance Urine Cloudy (Clear); Bilirubin Urine Negative (Negative); Blood Urine Negative (Negative); Color Urine Yellow (Yellow); Glucose Urine UA Negative (Negative); Ketones Urine Negative (Negative); Leukocyte Esterase Ur Negative LEU/UL (Negative); Mucus Urine Rare /lpf; Nitrate Urine Negative (Negative); Protein Urine Negative (Negative); Specific Grav Ur 1.009 (1.001-1.035); Urobilinogen Urine Negative mg/dL (<2.0); WBC Urine 0-3 /hpf
[2021-08-05 08:06] LABS: Albumin Level 3.7 g/dL (3.5-5.1); Anion Gap 3 mmol/L (8-16); Blood Urea Nitrogen 18 mg/dL (7-17); Calcium 8.6 mg/dL (8.4-10.2); Carbon Dioxide 31 mmol/L (22-30); Chloride 107 mmol/L (98-107); Estimated Glomerular Filt Rate > 60; Glucose 95 mg/dL (65-110); Phosphorus 3.6 mg/dL (2.5-4.5); Potassium 4.1 mmol/L (3.4-5.0); Sodium 141 mmol/L (137-145); Uric Acid 3.8 mg/dL (2.5-7.5)
== END 2021-08-05 07:14 | disposition home or self-care (01) ==
LOC: ANHLAB 07:15
PROVIDERS: PCP Family Medicine; Visit Provider Internal Medicine Nephrology
DX: N20.0 Calculus of kidney (principal)
CPT/HCPCS: 36415; 80069; 81001; 84550

== ENCOUNTER 2021-08-30 11:12 | Outpatient (CLI) | payer MEDICARE, OTHER, SELFPAY ==
--- NOTE | ~2021-08-30 | MMUS_ITS ---
EXAMINATION: MM diagnostic henrietta RT w sheldon, US breast RT limited HISTORY: Six-month follow-up for probably benign right breast mass TECHNIQUE: Craniocaudal, mediolateral, and mediolateral oblique 3-D tomosynthesis images of the right breast were performed and synthetic 2-D images were generated. CAD analysis was submitted and interp reted. High resolution limited right breast ultrasound was performed. COMPARISON: 02/21/2021, 01/23/2021, 02/11/2017 BREAST PARENCHYMAL COMPOSITION: The breasts are almost entirely fatty. FINDINGS: MAMMOGRAPHIC FINDINGS: The previously described mass in the outer right breast at the 9:00 location is no longer evident. In addition, there is no mammographic correlate for the reported palpable abnormality of the upper oute r quadrant of the right breast. No suspicious calcification or architectural distortion are identifie d. ULTRASOUND: There is no evidence of focal abnormal solid or cystic mass in the vicinity of the reported palpable abnormality of concern. IMPRESSION: 1. No specific mammographic or sonographic correlate is identified for the reported palpable abnormal ities concern in the upper outer quadrant of the right breast. Further evaluation at this time should be based on clinical assessment. Continued follow-up physical examination is recommended. In additio n, the previously described right breast masses no longer evident. 2. Routine screening mammography is recommended. BI-RADS Category 1: Negative Reviewed, dictated and finalized at location A. IMPRESSION: 1. No specific mammographic or sonographic correlate is identified for the repo rted palpable abnormalities concern in the upper outer quadrant of the right br east. Further evaluation at this time should be based on clinical assessment. C ontinued follow-up physical examination is recommended. In addition, the previo usly described right breast masses no longer evident. 2. Routine screening mammography is recommended. BI-RADS Category 1: Negative
== END 2021-08-30 11:13 | disposition home or self-care (01) ==
LOC: ANHIMG 11:13
PROVIDERS: PCP Family Medicine; Visit Provider Physician Assistant Medical
DX: N63.15 Unspecified lump in the right breast, overlapping quadrants (principal)
CPT/HCPCS: 76642; 77061; 77065; G0279

== ENCOUNTER 2022-05-29 07:19 | Outpatient (CLI) | payer MEDICARE, OTHER, SELFPAY ==
--- NOTE | ~2022-05-29 | XR_ITS ---
EXAMINATION: XR abdomen/kub 1V INDICATION: Kidney stones TECHNIQUE: Supine views of the abdomen were obtained on 2 radiographs. COMPARISON: 01/31/2021 FINDINGS: No definite urolithiasis is identified. There are multiple phleboliths of the pelvis. The b owel gas pattern is normal. There is moderate lumbar spondylosis. Mild osteoarthritis is noted in the hips. IMPRESSION: 1. No definite urolithiasis identified. Reviewed, dictated and finalized at location D. L [employer]
[2022-05-29 08:02] LABS: Creatinine Urine 135.7 mg/dL
[2022-05-29 08:08] LABS: Albumin Level 4.1 g/dL (3.5-5.1); Anion Gap 2 mmol/L (8-16); Blood Urea Nitrogen 23 mg/dL (7-17); Calcium 8.5 mg/dL (8.4-10.2); Carbon Dioxide 30 mmol/L (22-30); Chloride 105 mmol/L (98-107); Estimated Glomerular Filt Rate > 60; Glucose 106 mg/dL (65-110); Phosphorus 3.4 mg/dL (2.5-4.5); Potassium 4.4 mmol/L (3.4-5.0); Sodium 137 mmol/L (137-145); Uric Acid 5.1 mg/dL (2.5-7.5)
[2022-05-29 08:08] LABS: Total Protein Urine Random < 5 mg/dL; Ur Ttl Prot Creatinine Ratio < 0.04 mg/mg (0-0.20)
[2022-05-29 09:55] LABS: Add Urine Microscopic? YES; Appearance Urine Clear (Clear); Bilirubin Urine Negative (Negative); Blood Urine Trace-Intact (Negative); Color Urine Light Yellow (Yellow); Glucose Urine UA Negative (Negative); Ketones Urine Negative (Negative); Leukocyte Esterase Ur Negative LEU/UL (NEGATIVE); Nitrate Urine Negative (Negative); Protein Urine Negative (Negative); Urobilinogen Urine 0.2 mg/dL (<2.0); pH Urine 6.5 (5.0-9.0)
[2022-05-29 10:13] LABS: Mucus Urine Rare /lpf; Squamous Epithelial Cell Urine Rare /hpf (Few); WBC Urine 0-3 /hpf (0-3)
== END 2022-05-29 07:20 | disposition home or self-care (01) ==
LOC: ANHLAB 07:23
PROVIDERS: PCP Family Medicine; Visit Provider Internal Medicine Nephrology
DX: N20.0 Calculus of kidney (principal)
CPT/HCPCS: 36415; 74018; 80069; 81001; 82570; 83970; 84156; 84550

== ENCOUNTER 2022-07-08 09:34 | Outpatient (CLI) | payer MEDICARE, OTHER, SELFPAY | END 2022-07-08 09:35 | disposition home or self-care (01) | LOC: ANHLAB 09:37 | PROVIDERS: PCP Family Medicine; Visit Provider Internal Medicine Nephrology | DX: N20.0 Calculus of kidney (principal) | CPT/HCPCS: 82340; 82507; 82570; 83735; 83945; 83986; 84105; 84133; 84300; 84392; 84560 ==

== ENCOUNTER → 2022-09-04 13:28 | Outpatient (CLI) | payer MEDICARE, OTHER, SELFPAY ==
--- NOTE | ~2022-09-04 | MR_ITS ---
EXAMINATION: MR shoulder LT wo con DATE: 09/04/2022 14:10 INDICATION: Left shoulder pain. TECHNIQUE: Magnetic resonance imaging (MRI) of the left shoulder was performed without intravenous co ntrast. Sequences included axial PD-weighted FS FSE, coronal oblique PD-weighted FS FSE and T2-weight ed FS FSE, and sagittal oblique T2-weighted FS FSE and T1-weighted FSE. COMPARISON: Left shoulder radiographs 08/21/2022 FINDINGS: Coracoacromial arch: The acromion undersurface is curved in morphology (type II). There is severe acromioclavicular joint osteoarthritis. There is mild subacromial/subdeltoid bursitis. Rotator cuff: There is mild supraspinatus tendinopathy and moderate infraspinatus tendinopathy. There is an articul ar sided tear of supraspinatus and infraspinatus tendons measuring 21 mm anterior to posterior by 17 mm proximal to distal by 20% tendon thickness. There is a 15 x 7 x 6 mm ganglion cyst at the infraspi natus myotendinous junction. The teres minor tendon is normal. There is moderate subscapularis tendin opathy. There is no asymmetric fatty atrophy of the rotator cuff muscle bellies. Biceps tendon and glenoid labrum: Biceps tendon is in bicipital groove. There is mild intra-articular biceps tendinopathy. There is deg enerative tearing of the glenoid labrum. Fluid: There is a moderate-sized glenohumeral joint effusion. Bones/cartilage: There is partial-thickness cartilage loss of glenoid anteriorly and superiorly. There is at least kamran p partial thickness cartilage loss of humeral head superiorly. IMPRESSION: 1. Articular-sided, partial tear of supraspinatus and supraspinatus tendons. 2. Moderate glenohumeral joint chondrosis. 3. Mild intra-articular biceps tendinopathy. 4. Severe acromioclavicular joint osteoarthritis. 5. Moderate-sized glenohumeral joint effusion. 6. Mild subacromial/subdeltoid bursitis. Reviewed, dictated and finalized at location A.
== END ==
PROVIDERS: PCP Family Medicine; Visit Provider Orthopaedic Surgery
DX: S46.812A Strain of other muscles, fascia and tendons at shoulder and upper arm level, left arm, initial encounter (principal); M19.012 Primary osteoarthritis, left shoulder; M25.412 Effusion, left shoulder; M75.52 Bursitis of left shoulder; T14.90XA Injury, unspecified, initial encounter
CPT/HCPCS: 73221

== ENCOUNTER 2022-11-26 08:19 | Outpatient (CLI) | payer MEDICARE, OTHER, SELFPAY ==
--- NOTE | ~2022-11-26 | MM_ITS ---
EXAMINATION: MM screening henrietta BI w sheldon HISTORY: Screening mammogram TECHNIQUE: Craniocaudal and mediolateral oblique 3-D tomosynthesis images were obtained and synthetic 2-D images were generated. CAD analysis was submitted and interpreted. COMPARISON: No prior mammogram is available for comparison at this institution. BREAST PARENCHYMAL COMPOSITION: The breasts are almost entirely fatty. FINDINGS: There is no evidence of suspicious mass, calcification, or architectural distortion to sugg est malignancy in either breast. There has been no suspicious interval change. IMPRESSION: 1. No mammographic evidence of malignancy. 2. Recommend routine screening mammography in one year. BI-RADS Category 1: Negative Reviewed, dictated and finalized at location A.
== END 2022-11-26 08:20 | disposition home or self-care (01) ==
LOC: ANHIMG 08:23
PROVIDERS: PCP Family Medicine; Visit Provider Family Medicine
DX: Z12.31 Encounter for screening mammogram for malignant neoplasm of breast (principal)
CPT/HCPCS: 77063; 77067

== ENCOUNTER 2022-12-01 10:16 | Outpatient (CLI) | payer MEDICARE, OTHER, SELFPAY ==
[2022-12-01 11:28] LABS: Albumin Level 4.1 g/dL (3.5-5.1); Anion Gap 3 mmol/L (8-16); Blood Urea Nitrogen 19 mg/dL (7-17); Calcium 9.1 mg/dL (8.4-10.2); Carbon Dioxide 32 mmol/L (22-30); Chloride 105 mmol/L (98-107); Estimated Glomerular Filt Rate > 60; Glucose 104 mg/dL (65-110); Phosphorus 3.1 mg/dL (2.5-4.5); Potassium 4.9 mmol/L (3.4-5.0); Sodium 140 mmol/L (137-145); Uric Acid 6.2 mg/dL (2.5-7.5)
[2022-12-01 13:12] LABS: Appearance Urine Clear (Clear); Bacteria Urine None Seen /hpf; Bilirubin Urine Negative (Negative); Blood Urine Negative (Negative); Color Urine Yellow (Yellow); Glucose Urine UA Negative (Negative); Ketones Urine Negative (Negative); Leukocyte Esterase Ur Trace LEU/UL (NEGATIVE); Nitrate Urine Negative (Negative); Non Pathogenic Casts 0-2; Protein Urine Negative (Negative); Specific Grav Ur 1.018 (1.001-1.035); Squamous Epithelial Cell Urine None seen /hpf (Few); WBC Urine 0-5 /hpf (0-3)
[2022-12-01 13:43] LABS: Add Urine Microscopic? YES
== END 2022-12-01 10:17 | disposition home or self-care (01) ==
PROVIDERS: PCP Family Medicine; Visit Provider Internal Medicine Nephrology
DX: N20.0 Calculus of kidney (principal); I10 Essential (primary) hypertension
CPT/HCPCS: 36415; 80069; 81001; 84550

== ENCOUNTER 2022-12-15 07:10 | Outpatient (CLI) | payer MEDICARE, OTHER, SELFPAY ==
[2022-12-15 07:41] LABS: Hematocrit 33.5 % (37.0-47.0); Hemoglobin 9.7 g/dL (12.0-15.0); Mean Corpuscular Hemoglobin 22.1 pg (26-34); Mean Corpuscular Volume 76.3 fl (80-100); Mean Platelet Volume 9.2 fl (7.4-10.4); Platelet Count Result 369 k/mm3 (150-375); Red Blood Count 4.39 M/mm3 (4.2-5.4); Red Cell Distribution Width 17.2 % (11.5-14.5); White Blood Count 4.9 K/mm3 (4.5-10.0)
[2022-12-15 07:51] LABS: Alanine Aminotransferase 26 U/L (6-35); Albumin Level 3.7 g/dL (3.5-5.1); Alkaline Phosphatase 74 U/L (38-126); Anion Gap 3 mmol/L (8-16); Aspartate Amino Transferase 31 U/L (14-36); Bilirubin,Total 0.4 mg/dL (0.2-1.3); Blood Urea Nitrogen 21 mg/dL (7-17); Calcium 8.6 mg/dL (8.4-10.2); Carbon Dioxide 31 mmol/L (22-30); Chloride 105 mmol/L (98-107); Cholesterol 225 mg/dL (0-200); Estimated Glomerular Filt Rate > 60; Glucose 102 mg/dL (65-110); HDL Direct 33 mg/dL; Potassium 4.4 mmol/L (3.4-5.0); Sodium 139 mmol/L (137-145); Triglycerides 197 mg/dL (<150)
[2022-12-15 08:02] LABS: LDL Cholesterol Direct 142 mg/dL
== END 2022-12-15 07:11 | disposition home or self-care (01) ==
LOC: ANHLAB 07:12
PROVIDERS: PCP Family Medicine; Visit Provider Family Medicine
DX: E78.2 Mixed hyperlipidemia (principal); I10 Essential (primary) hypertension; Z13.220 Encounter for screening for lipoid disorders
CPT/HCPCS: 36415; 80048; 80061; 80076; 84443; 85027

== ENCOUNTER 2023-01-09 11:47 | Outpatient (CLI) | payer MEDICARE, OTHER, SELFPAY ==
--- NOTE | ~2023-01-09 | MMUS_ITS ---
EXAMINATION: MM diagnostic henrietta BI w sheldon, US breast RT limited HISTORY: Palpable lump in the upper outer quadrant of the right breast TECHNIQUE: Craniocaudal, mediolateral, and mediolateral oblique 3-D tomosynthesis images of the zuri ts were performed and synthetic 2-D images were generated. CAD analysis was submitted and interpreted . High resolution limited right breast ultrasound was performed. COMPARISON: 11/26/2022, 08/30/2021, 02/21/2021, 01/23/2021 BREAST PARENCHYMAL COMPOSITION: The breasts are almost entirely fatty. FINDINGS: MAMMOGRAPHIC FINDINGS: No suspicious mass, calcification, or architectural distortion are identified in either breast to sug gest malignancy. There has been no suspicious interval change. No mammographic correlate is identifie d for the reported palpable abnormality of the right breast. ULTRASOUND: No sonographic correlate is identified for the reported palpable abnormality of the right breast. IMPRESSION: 1. No specific mammographic or sonographic correlate is identified for the reported palpable abnormal ity of concern in the right breast. Further evaluation at this time should be based on clinical asses sment. Continued follow-up physical examination is recommended. 2. Recommend routine screening mammography in one year. BI-RADS Category 1: Negative Reviewed, dictated and finalized at location A. IMPRESSION: 1. No specific mammographic or sonographic correlate is identified for the repo rted palpable abnormality of concern in the right breast. Further evaluation at this time should be based on clinical assessment. Continued follow-up physical examination is recommended. 2. Recommend routine screening mammography in one year. BI-RADS Category 1: Negative
== END 2023-01-09 11:48 | disposition home or self-care (01) ==
LOC: ANHIMG 11:48
PROVIDERS: PCP Family Medicine; Visit Provider Nurse Practitioner Family
DX: R92.8 Other abnormal and inconclusive findings on diagnostic imaging of breast (principal)
CPT/HCPCS: 76642; 77062; 77066; G0279

== ENCOUNTER 2023-02-12 07:31 | Outpatient (CLI) | payer MEDICARE, OTHER, SELFPAY ==
[2023-02-12 07:50] LABS: Hematocrit 34.9 % (37.0-47.0); Hemoglobin 10.4 g/dL (12.0-15.0)
== END 2023-02-12 07:32 | disposition home or self-care (01) ==
PROVIDERS: PCP Family Medicine; Visit Provider Family Medicine
DX: D64.9 Anemia, unspecified (principal)
CPT/HCPCS: 36415; 85014; 85018

== ENCOUNTER 2023-02-25 11:39 | Outpatient (CLI) | payer MEDICARE, OTHER, SELFPAY ==
--- NOTE | ~2023-02-25 | XR_ITS ---
XR knee LT 3V 02/25/2023 12:00 Indication: Chronic left knee pain Procedure: 3 views left knee Comparison: 08/11/2011 Findings: There is moderate tricompartment osteoarthritis. Small knee effusion. No fracture or trauma tic malalignment. 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 2: Small knee effusion. Reviewed, dictated and finalized at location B. 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 2: Small knee effusion.
== END 2023-02-25 11:40 | disposition home or self-care (01) ==
LOC: ANHIMG 11:47
PROVIDERS: PCP Family Medicine; Visit Provider Physician Assistant Medical
DX: M17.12 Unilateral primary osteoarthritis, left knee (principal); M25.462 Effusion, left knee
CPT/HCPCS: 73562

== ENCOUNTER 2023-05-07 08:32 | Outpatient (CLI) | payer MEDICARE, OTHER, SELFPAY ==
[2023-05-07 09:02] LABS: Hematocrit 36.3 % (37.0-47.0); Hemoglobin 10.8 g/dL (12.0-15.0); Mean Corpuscular HGB Conc 29.8 g/dl (32-36); Mean Corpuscular Hemoglobin 23.5 pg (26-34); Mean Corpuscular Volume 78.9 fl (80-100); Mean Platelet Volume 9.2 fl (7.4-10.4); Platelet Count Result 310 k/mm3 (150-375); Red Cell Distribution Width 18.8 % (11.5-14.5); White Blood Count 4.7 K/mm3 (4.5-10.0)
== END 2023-05-07 08:33 | disposition home or self-care (01) ==
LOC: ANHLAB 08:34
PROVIDERS: PCP Family Medicine; Visit Provider Nurse Practitioner Family
DX: D64.9 Anemia, unspecified (principal)
CPT/HCPCS: 36415; 85027

== ENCOUNTER 2023-06-02 07:27 | Outpatient (CLI) | payer MEDICARE, OTHER, SELFPAY ==
--- NOTE | ~2023-06-02 | XR_ITS ---
Supine and upright views of the abdomen Clinical history: Renal stone COMPARISON: 05/29/2022 Findings: Bowel gas pattern is nonspecific. No evidence for obstruction or free air. No abnormal mass lesion or calcification is seen. Calcified pelvic phleboliths appear unchanged. Osseous structures a re intact. Impression: No significant abnormality is seen. Reviewed, dictated and finalized at [facility]. PORTER Impression: No significant abnormality is seen.
[2023-06-02 08:05] LABS: Albumin Level 3.8 g/dL (3.5-5.1); Anion Gap 7 mmol/L (8-16); Blood Urea Nitrogen 27 mg/dL (7-17); Calcium 9.1 mg/dL (8.4-10.2); Carbon Dioxide 28 mmol/L (22-30); Chloride 105 mmol/L (98-107); Estimated Glomerular Filt Rate 49; Glucose 93 mg/dL (65-110); Phosphorus 2.9 mg/dL (2.5-4.5); Potassium 4.3 mmol/L (3.4-5.0); Sodium 140 mmol/L (137-145); Uric Acid 4.9 mg/dL (2.5-7.5)
[2023-06-02 08:07] LABS: Appearance Urine Cloudy (Clear); Bacteria Urine 4+ /hpf; Bilirubin Urine Negative (Negative); Blood Urine Negative (Negative); Color Urine Yellow (Yellow); Glucose Urine UA Negative (Negative); Ketones Urine Negative (Negative); Leukocyte Esterase Ur 1+ LEU/UL (NEGATIVE); Nitrate Urine Negative (Negative); Non Pathogenic Casts 0-2; Protein Urine Negative (Negative); Specific Grav Ur 1.015 (1.001-1.035); Squamous Epithelial Cell Urine None seen /hpf (Few); Urobilinogen Urine 0.2 mg/dL (<2.0); WBC Urine 21-50 /hpf (0-3)
[2023-06-02 08:29] LABS: Add Urine Microscopic? YES
== END 2023-06-02 07:28 | disposition home or self-care (01) ==
PROVIDERS: PCP Family Medicine; Visit Provider Internal Medicine Nephrology
DX: N20.0 Calculus of kidney (principal)
CPT/HCPCS: 36415; 74018; 80069; 81001; 84550

== ENCOUNTER 2023-08-11 11:39 | Outpatient (CLI) | payer MEDICARE, OTHER, SELFPAY ==
--- NOTE | 2023-08-11 12:04 | ECG_ITS ---
Measurements Intervals [place] Rate: 63 P: 26 FL: 183 QRS: -3 QRSD: 90 T: 17 QT: 402 QTc: 413 Interpretive Statements SINUS RHYTHM BASELINE ARTIFACT- I, II NORMAL ECG COMPARED TO ECG 11/14/2020 09:54:19 NO SIGNIFICANT CHANGES Electronically Signed On 08-11-2023 12:47:08 CDT by Getachew Polk D.O.
[2023-08-11 12:29] LABS: Albumin Level 3.8 g/dL (3.5-5.1); Anion Gap 2 mmol/L (8-16); Blood Urea Nitrogen 20 mg/dL (7-17); Calcium 9.2 mg/dL (8.4-10.2); Carbon Dioxide 31 mmol/L (22-30); Chloride 105 mmol/L (98-107); Estimated Glomerular Filt Rate > 60; Glucose 84 mg/dL (65-110); Phosphorus 3.3 mg/dL (2.5-4.5); Potassium 3.9 mmol/L (3.4-5.0); Sodium 138 mmol/L (137-145)
[2023-08-11 12:42] LABS: Appearance Urine Clear (Clear); Bacteria Urine None Seen /hpf; Bilirubin Urine 1+ (Negative); Blood Urine Negative (Negative); Color Urine Dark Yellow (Yellow); Glucose Urine UA Negative (Negative); Hyaline Casts Urine Present /lpf; Ketones Urine Trace mg/dL (Negative); Leukocyte Esterase Ur 2+ LEU/UL (Negative); Need Manual Microscopic Reviewed; Nitrate Urine Negative (Negative); Protein Urine Negative (Negative); RBC Urine 0-2 /hpf (0-2); Specific Grav Ur 1.018 (1.001-1.035); Squamous Epithelial Cell Urine Occasional /hpf (Few); pH Urine 5.5 (5.0-9.0)
[2023-08-11 12:50] LABS: Add Urine Microscopic? YES
[2023-08-11 13:19] LABS: Sodium Urine Random 78 meq/L
== END 2023-08-11 11:40 | disposition home or self-care (01) ==
PROVIDERS: PCP Family Medicine; Referring Provider Nurse Practitioner Family; Visit Provider Internal Medicine Nephrology
DX: I10 Essential (primary) hypertension (principal); E78.2 Mixed hyperlipidemia; D64.9 Anemia, unspecified; R53.83 Other fatigue; R94.4 Abnormal results of kidney function studies
CPT/HCPCS: 36415; 80069; 81001; 82570; 84300; 87086; 93005

== ENCOUNTER 2023-08-21 08:53 | Outpatient (CLI) | payer MEDICARE, OTHER, SELFPAY ==
[2023-08-21 10:14] LABS: Basophils Percent Auto 0.6 % (0.2-1.2); Eosinophils Absolute Auto 0.2 K/mm3 (0-0.3); Eosinophils Percent Auto 4.3 % (0-4.4); Hematocrit 36.9 % (37.0-47.0); Immature Granulocyte Absolute 0.01 K/mm3 (0.00-0.031); Immature Granulocyte Percent A 0.2 % (0-0.5); Lymphocytes Absolute Auto 0.88 K/mm3 (0.9-3.2); Lymphocytes Percent Auto 18.7 % (18.3-44.2); Mean Corpuscular HGB Conc 29.8 g/dl (32-36); Mean Corpuscular Hemoglobin 25.1 pg (26-34); Mean Corpuscular Volume 84.1 fl (80-100); Mean Platelet Volume 10.3 fl (7.4-10.4); Monocytes Absolute Auto 0.4 K/mm3 (0.1-0.6); Monocytes Percent Auto 9.4 % (2.6-8.5); Neutrophils Absolute Auto 3.1 K/mm3 (1.3-6.7); Neutrophils Percent Auto 66.8 % (45.5-73.1); Platelet Count Result 327 k/mm3 (150-375); Red Blood Count 4.39 M/mm3 (4.2-5.4); Red Cell Distribution Width 17.2 % (11.5-14.5); White Blood Count 4.7 K/mm3 (4.5-10.0)
[2023-08-21 10:28] LABS: Anion Gap 1 mmol/L (8-16); Blood Urea Nitrogen 22 mg/dL (7-17); Calcium 8.9 mg/dL (8.4-10.2); Carbon Dioxide 30 mmol/L (22-30); Chloride 106 mmol/L (98-107); Estimated Glomerular Filt Rate 55; Glucose 86 mg/dL (65-110); Potassium 3.8 mmol/L (3.4-5.0); Sodium 137 mmol/L (137-145)
[2023-08-21 10:30] LABS: Iron 61 ug/dL (37-170)
[2023-08-21 10:40] LABS: Percent Iron Saturation 17 % (20-50)
[2023-08-21 11:07] LABS: Ferritin 7.39 ng/mL (11.1-264)
[2023-08-21 11:44] LABS: Hypochromasia 1+; Platelet Estimate Adequate (Adequate); Schistocytes None Seen
== END 2023-08-21 08:54 | disposition home or self-care (01) ==
PROVIDERS: PCP Family Medicine; Visit Provider Family Medicine
DX: D64.9 Anemia, unspecified (principal); I10 Essential (primary) hypertension
CPT/HCPCS: 36415; 80048; 82728; 83540; 83550; 85025

== ENCOUNTER 2023-09-29 09:53 | Outpatient (CLI) | payer MEDICARE, OTHER, SELFPAY ==
[2023-09-29 12:18] LABS: Albumin Level 3.8 g/dL (3.5-5.1)
[2023-09-29 12:21] LABS: Appearance Urine Turbid (Clear); Bacteria Urine 4+ /hpf; Bilirubin Urine 1+ (Negative); Blood Urine 3+ (Negative); Color Urine Dark Yellow (Yellow); Glucose Urine UA Negative (Negative); Ketones Urine Trace mg/dL (Negative); Leukocyte Esterase Ur 3+ LEU/UL (Negative); Nitrate Urine Positive (Negative); Protein Urine 1+ mg/dL (Negative); RBC Urine >100 /hpf (0-2); Specific Grav Ur 1.023 (1.001-1.035); Squamous Epithelial Cell Urine None Seen /hpf (Few); WBC Urine >100 /hpf (0-3); pH Urine 5.5 (5.0-9.0)
[2023-09-29 12:24] LABS: Add Urine Microscopic? YES
[2023-09-29 12:31] LABS: INR 0.9; Prothrombin Time 12.9 Seconds (11.1-14.7)
[2023-09-29 12:32] LABS: Partial Thromboplastin Time 31.1 Seconds (22.3-36.8)
[2023-09-29 12:46] LABS: Hemoglobin A1C 5.4 % (<5.7)
[2023-09-29 12:50] LABS: Urine Cotinine NEGATIVE
[2023-09-29 13:40] LABS: MRSA (PCR) NOT DETECTED (NOT DETECTE)
== END 2023-09-29 09:54 | disposition home or self-care (01) ==
LOC: ANHSURGERY 09:58
PROVIDERS: PCP Family Medicine; Visit Provider Orthopaedic Surgery
DX: Z01.818 Encounter for other preprocedural examination (principal); M17.12 Unilateral primary osteoarthritis, left knee; M19.012 Primary osteoarthritis, left shoulder
CPT/HCPCS: 80307; 81001; 82040; 83036; 85610; 85730; 87077; 87086; 87088; 87186; 87641

== ENCOUNTER 2023-10-13 01:20 | Day surgery (SDC) | payer MEDICARE, OTHER, SELFPAY ==
--- NOTE | 2023-09-29 09:58 | PC.NURSE ---
Report to the Outpatient Waiting Room, entrance under the green pavilion located off [facility], at time ___6:30AM____ on date ___10/13/23____. Planned Procedure Time: __8:30AM . Time changes happen often and if your time is changed the preop area will call you the afternoon before. - You and your visitor will be asked to self-screen and do not enter if you have any COVID symptoms. - A mask is optional within the hospital at this time. Patients may have clear liquids (water, carbonated beverages, clear teas, apple juice) until 3 hours prior to surgery with a maximum of 20 ounces. - No food from midnight until time of surgery. Take the following medications with a SIP of water the morning of surgery: ____NONE DO NOT STOP ANY OF YOUR OTHER PRESCRIPTION MEDICATIONS PRIOR TO SURGERY ?EXCEPT THE FOLLOWING Medications to discontinue per physician ____HOLD CONTRAVE 2 WEEKS PRE-OP PER DR SORTO- LAST DOSE 09/28/23 HOLD ASPIRIN, NAPROXEN & ALL VITAMINS/SUPPLEMENTS 7 DAYS PRE-OP PER DR PAIGE-LAST DOSE 10/05/23 Please no make-up, nail japanese, hairspray, perfume, deodorant, or body powder the day of surgery. No jewelry (including any body piercings) or valuables the day of surgery, leave them at home. Please take a shower or bath the night before, or the morning of, surgery with an antibacterial soap. Wear comfortable, loose fitting clothing. - Jewelry must be removed prior to entering the operating room. Rings and piercings that are not removed may be cut off. - The hospital will not accept responsibility for valuables. - Please leave all valuables, including medications, at home the day of surgery. If you are going home after surgery, a licensed hazardous materials tanker driver must drive you home. - NO public transportation without another adult if you receive anesthesia. - We recommend that an adult stay with you for 24 hours following discharge. - We also recommend that you do not drive, make important decision, drink alcoholic beverages, or take any drugs that were not prescribed by your health care provider for at least 24 hours after your discharge time. Follow any additional instructions given to you from your surgeon. If you or anyone in your household have experienced Covid symptoms in the past week, please notify your surgeon or the nurse liaison at the phone number below for possible testing. Telephone instructions given to ___PATIENT and asked if any additional questions and then verbalized understanding. Patient advised to call surgeon office or pre surgery nurse liaison [phone] if any additional questions.
[2023-09-29 10:20] VITALS: BP 139/70; PULSE 78; RESP 16; TEMP 37.1; O2SAT 100; BMI 29.5
[2023-10-13] VITALS (13 sets, daily range): BP systolic 108–148; BP diastolic 42–81; PULSE 63–90; RESP 10–20; TEMP 36.3–36.6; O2SAT 94–100
--- NOTE | ~2023-10-13 | XR_ITS ---
EXAMINATION: [id number] DATE: 10/13/2023 11:30 INDICATION: Left knee arthroplasty. Postop. TECHNIQUE: 2 views of left knee were obtained. COMPARISON: Left knee radiographs 08/06/2023 FINDINGS: There is a total left knee arthroplasty without patellar resurfacing in near-anatomic align ment. No fracture. There is gas in the knee joint and soft tissues, consistent with recent surgery. A nterior skin jacobo are noted. IMPRESSION: 1. Total left knee arthroplasty in near-anatomic alignment. Reviewed, dictated and finalized at location A.
[2023-10-13] MEDS: ACETAMINOPHEN 500 MG TABLET 1000 MG PO (06:46)
[2023-10-13] MEDS: LACTATED RINGERS 1,000 ML 30 ML IV CONT ×2 (06:56→11:15)
[2023-10-13] MEDS: TRANEXAMIC ACID 1,000MG/ISO100 1,000 MG/100 ML BAG 200 MG IVPB (07:20)
--- NOTE | 2023-10-13 07:55 | WPDANESEPPF ---
Anes - Initial Pre Proc Eval Procedure: Operation Date: 10/13/23 08:30 Proposed Procedures p Left Total Knee Arthroplasty - Trav Becerra MD Date/Time: 10/13/23 07:55 Surgeon: Trav Becerra MD Pre Op Diagnosis: left knee oa Patient Data Age: 72 Gender: F Height: 1.6 m Weight: 78.2 kg Last Vital Signs Temp 97.3 F L 10/13/23 07:00 Pulse 63 10/13/23 07:00 Resp 16 10/13/23 07:00 BP 148/79 H 10/13/23 07:00 Pulse Ox 100 10/13/23 07:00 O2 Del Method Room Air 10/13/23 07:00 Allergies Allergy/AdvReac Type Severity Reaction Status Date / Time No Known Allergies Allergy Verified 10/13/23 06:35 Home Medications Medication Instructions Recorded Confirmed Type cranberry extract 500 mg capsule 650 mg PO DAILY 09/18/20 10/13/23 History Lactobacillus 1 cap PO DAILY 11/12/20 10/13/23 History acidophilus-Bifidobac.animalis 2.5 billion cell capsule (Daily Probiotic) aspirin 81 mg tablet 81 mg PO HS 11/12/20 10/13/23 History cholecalciferol (vitamin D3) 125 125 mcg PO DAILY 11/12/20 10/13/23 History mcg (5,000 unit) tablet magnesium 500 mg tablet 15 mg PO DAILY 11/12/20 10/13/23 History vitamin B complex 1 cap PO DAILY 11/12/20 10/13/23 History naproxen sodium 220 mg capsule 220 mg PO BID PRN Pain 01/13/23 10/13/23 History (Aleve) omega 8-pcg-jqu-fish oil 1,000 mg 1 cap PO DAILY 01/13/23 10/13/23 History (120 mg-180 mg) capsule naltrexone 8 mg-bupropion 90 mg 2 tablet PO BID #360 tabs 08/18/23 10/13/23 Rx tablet,extended release (Contrave) omeprazole 40 mg capsule,delayed 40 mg PO DAILY #90 caps 08/19/23 10/13/23 Rx release clobetasol 0.05 % topical cream 1 applic topical DAILY PRN rash 08/24/23 10/13/23 Rx #30 grams hyoscyamine sulfate 0.375 mg 0.375 mg PO BID 09/29/23 10/13/23 History tablet,extended release,12 hr multivitamin 1 tablet PO DAILY 09/29/23 10/13/23 History turmeric 400 mg capsule 1,000 mg PO DAILY 09/29/23 10/13/23 History chlorhexidine gluconate 4 % 1 applic topical ONCE #237 mL 10/02/23 10/13/23 Rx topical liquid (Hibiclens) ciprofloxacin HCl 500 mg tablet 500 mg PO Q12H UTI #22 tabs 10/02/23 10/13/23 Rx Laboratory Tests 10/13/23 06:47 Blood Type O Positive Antibody Screen Negative Patient hx anesthesia problems: none Family hx anesthesia problems: none Results Review: All pre-operative results and documents have been reviewed as part of the pre-operative evaluation. 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 BMI 31.0-31.9,adult BMI 34.0-34.9,adult Degenerative joint disease of knee Essential hypertension Ganglion cyst Liver cyst Mass of breast, right Mass of left wrist Mitral valve prolapse Mixed hyperlipidemia Hayes's neuroma of both feet Other fatigue Post-menopausal Reflux esophagitis Screening for breast cancer Screening for osteoporosis UTI (urinary tract infection) Surgical History Surgical History H/O abdominoplasty H/O: hysterectomy History of surgical removal of skin lesion 2020 Family History Family History Sibling Hypertension Family history of diabetes mellitus in first degree relative Family history of lung cancer Dialysis patient Diabetes mellitus Father Family history of heart disease in male family member before age 55 Cerebrovascular accident CHF (congestive heart failure) Mother Family history of heart disease in male family member before age 55 HOCM (hypertrophic obstructive cardiomyopathy) Sibling Diabetes mellitus Dialysis patient Other Family history of arthritis Family history of cardiovascular disease Social History Soc
--- NOTE | 2023-10-13 08:35 | WPDHPUPDATE1 ---
History and Physical Update Update Date/Time: 10/13/23 08:35 History and Physical has been reviewed, including an updated exam of the patient. There are NO changes in the patient's condition. Risks, benefits, and alternatives have been discussed and questions answered. Patient agrees to proceed with procedure.
[2023-10-13] MEDS: ceFAZolin 2 GM/D5W 50 ML 2 GM/50 ML BAG IVPB ×2 (08:50→17:30)
--- NOTE | 2023-10-13 08:50 | WPDANESPNB ---
Anes - Peripheral Nerve Block Date/Time: 10/13/23 08:50 I have discussed with the patient/family/POA the placement of a peripheral nerve block for post-operative pain management, including associated risks, benefits, complications, and side effects. Alternative methods of post-operative analgesia were detailed. Questions were solicited and answers provided to the satisfaction of the patient/family/POA. Time-Out: A pre-procedural Time-Out was completed immediately before starting the procedure and confirmed: Patient Identification, Site, Procedure, Patient Position and the Availability of Requisite Equipment. Clinical Indications: Acute post-operative pain management requested by the operative surgeon. Nerve Block Insertion Note Anes-nerve block: adductor canal left Patient position: supine Skin prep: chlorhexidine Needle: 22 gauge, stimulating, insulated echogenic needle. Needle length: 80 mm Technique: ultrasound Injectate: other (Bupiv 0.5% 15 mls. ) Observations: tolerated well Complications: none Procedure start time:: 836 Procedure end time:: 845
[2023-10-13] MEDS: SODIUM CHLORIDE 0.9% IV 37.7 ML, MORPHINE SULFATE INJ (*CRX) 2 MG, ROPivacaine HCL 1% 2... INFILTRATE (09:17)
[2023-10-13] MEDS: TRANEXAMIC ACID 1,000 MG/10 ML AMPUL 1000 MG IV PUSH (10:27)
--- NOTE | 2023-10-13 11:09 | W.PM.PROC2 ---
Procedure Note - Detailed Date of Procedure 10/13/23 Pre-op Diagnosis left knee oa Post-op Diagnosis Same Procedure Performed L TKA Surgeon Trav Becerra MD Anesthesia General Description of Procedure THE LEFT KNEE WAS PREPPED AND DRAPED IN THE STERILE FASHION. THERE WAS A 15 DEGREE FLEXION CONTRACTURE. A MIDLINE SKIN INCISION WAS MADE. A MEDIAL PARAPATELLAR ARTHROTOMY WAS MADE. THE PATELLA WAS EVERTED. THERE WAS TRICOMPARTMENT DJD. THERE WAS MINIMAL PATELLA DJD. AN INTRAMEDULLARY LAURA WAS PLACED IN THE FEMUR. A DISTAL FEMORAL CUT WAS MADE IN 5 DEGREES OF VALGUS REMOVING APPROXIMATELY 10 MM OF BONE FROM THE DISTAL FEMUR. THE FEMUR WAS SIZED TO 60. A 60 FEMORAL CUTTING BLOCK WAS PLACED IN 3 DEGREES OF EXTERNAL ROTATION AND IN ALIGNMENT WITH MIR'S LINE AND THE TRANSEPICONDYLAR AXIS. ANTERIOR POSTERIOR AND CHAMFER CUTS WERE MADE. THE CUTS WERE EXCELLENT. NEXT AN INTRAMEDULLARY CUTTING GUIDE WAS PLACED IN THE TIBIA. A TRANS TIBIAL CUT WAS MADE ALONG THE LONG AXIS OF THE TIBIA. APPROXIMATELY 10 MM OF BONE WAS REMOVED FROM THE HIGH SIDE OF THE TIBIA. THE TIBIA WAS THEN PLANED TO A SMOOTH SURFACE. POSTERIOR FEMORAL OSTEOPHYTES WERE REMOVED FROM THE FEMORAL CONDYLES. A 71 TIBIAL TRIAL WAS PLACED IN ALIGNMENT WITH THE 1/3 MEDIAL ASPECT OF THE TIBIAL TUBERCLE. THEN A 60 FEMORAL TRIAL COMPONENT WAS PLACED. BOTH HAD EXCELLENT FITS. EVENTUALLY A 10 MM POLYETHYLENE TRIAL COMPONENT WAS PLACED. THE KNEE WAS TAKEN THROUGH A RANGE OF MOTION. THE KNEE CAME OUT TO FULL EXTENSION. THERE WAS NO ABNORMAL TILT TO THE PATELLA. THERE WAS GOOD A/P AND VARUS/VALGUS STABILITY. THERE WAS NO EXCESSIVE ROLL BACK WITH FLEXION. THE TRIAL COMPONENTS WERE REMOVED. THEN A 60 FEMORAL COMPONENT AND 71 TIBIAL COMPONENT WITH A 10 POLYETHYLENE COMPONENT WERE CEMENTED INTO PLACE. ONCE THE CEMENT WAS HARD THE KNEE WAS TAKEN THROUGH A ROM AGAIN AND FOUND TO BE STABLE WITH NO PATELLA TILT NO EXCESSIVE ROLL BACK WITH FLEXION AND GOOD STABILITY WITH COMPLETE AND FULL EXTENSION. THE KNEE WAS IRRIGATED WITH STERILE BETADINE AND WATER FOR ABOUT 3 MINUTES. THE BLEEDERS WERE CAUTERIZED. THE ARTHROTOMY WAS REPAIRED WITH NUMBER 1 VICRYL and STRATAFIX. THE SUB CUTANEOUS LAYER WITH 2-0 VICRYL AND THE SKIN WITH ESTHER. THE WOUND WAS WASHED AND A STERILE DRESSING WAS APPLIED. PATIENT WAS EXTUBATED. Estimated Blood Loss -150.0 Pathology None sent Complications No immediate complications Condition Stable Disposition PACU
[2023-10-13] MEDS: fentaNYL CITRATE INJ (*CRX) 100 MCG/2 ML VIAL 25 MCG IV PUSH ×3 (11:32→11:57)
[2023-10-13] MEDS: ONDANSETRON INJ 4 MG/2 ML VIAL IV PUSH ×2 (12:08→12:43)
--- NOTE | 2023-10-13 12:52 | PC.NURSE ---
This patient, Cecilia Rees, was admitted to 3 [facility] Surg Room 313-01. Patient/family oriented to hospital policies and general routines including ID bracelet, bed and alarms, visiting hours, pain management, procedures, bathroom and other care routines, personal items, smoking policy, room service/diet, and visiting hours. Information on how to activate the Rapid Response Team has been discussed. Patient/Family are encouraged to report perceived risks to care and to ask questions if they do not understand what they are told or what they should do.
[2023-10-13] MEDS: KETOROLAC 15 MG/ML VIAL (*BKC) IV PUSH ×2 (14:07→20:30)
[2023-10-13] MEDS: PROMETHAZINE HCL 25 MG/ML AMPUL 12.5 MG IV PUSH (15:30)
[2023-10-13] MEDS: CHOLECALCIFEROL 1,000 UNITS TABLET 5000 UNITS PO (17:01)
[2023-10-13] MEDS: oxyCODONE/ACETAMINOPHEN (*CRX) 5-325 MG TABLET 1 TABLET PO (17:02)
[2023-10-13] MEDS: SENNA/DOCUSATE SODIUM TABLET 2 TAB PO ×2 (17:02→20:30)
[2023-10-13] MEDS: SODIUM CHLORIDE 0.9% IV 1,000 ML 125 ML IV CONT (17:03)
[2023-10-13] MEDS: FAMOTIDINE 20 MG TABLET PO ×2 (17:03→20:30)
[2023-10-13] MEDS: ASPIRIN 325 MG ENTERIC TABLET PO ×2 (17:15→20:31)
[2023-10-13] MEDS: polyethylene glycoL 3350 17 GM POWD.PACK PO (17:30)
[2023-10-13] MEDS: oxyCODONE/ACETAMINOPHEN (*CRX) 10-325 MG TABLET 1 TAB PO (21:18)
[2023-10-14] MEDS: ceFAZolin 2 GM/D5W 50 ML 2 GM/50 ML BAG IVPB ×2 (01:03→09:05)
[2023-10-14] MEDS: KETOROLAC 15 MG/ML VIAL (*BKC) IV PUSH ×3 (01:03→13:48)
[2023-10-14 01:33] VITALS: BP 100/55; PULSE 63; RESP 12; TEMP 36.5; O2SAT 94
[2023-10-14] MEDS: IBUPROFEN IV 800 MG/200 ML 800 MG/200 ML BAG 400 MG IVPB (02:50)
[2023-10-14] MEDS: oxyCODONE/ACETAMINOPHEN (*CRX) 10-325 MG TABLET 1 TAB PO (04:52)
[2023-10-14 05:24] VITALS: BP 100/47; PULSE 62; RESP 12; TEMP 36.9; O2SAT 99
[2023-10-14 06:09] LABS: Basophils Percent Auto 0.1 % (0.2-1.2); Hemoglobin 8.4 g/dL (12.0-15.0); Immature Granulocyte Absolute 0.05 K/mm3 (0.00-0.031); Immature Granulocyte Percent A 0.5 % (0-0.5); Lymphocytes Absolute Auto 1.09 K/mm3 (0.9-3.2); Lymphocytes Percent Auto 10.7 % (18.3-44.2); Mean Corpuscular Hemoglobin 25.5 pg (26-34); Mean Corpuscular Volume 84.8 fl (80-100); Mean Platelet Volume 9.9 fl (7.4-10.4); Monocytes Absolute Auto 0.9 K/mm3 (0.1-0.6); Monocytes Percent Auto 8.7 % (2.6-8.5); Neutrophils Absolute Auto 8.2 K/mm3 (1.3-6.7); Platelet Count Result 239 k/mm3 (150-375); White Blood Count 10.2 K/mm3 (4.5-10.0)
[2023-10-14 06:27] LABS: Anion Gap 3 mmol/L (4-12); Blood Urea Nitrogen 18 mg/dL (7-17); Calcium 7.8 mg/dL (8.4-10.2); Carbon Dioxide 27 mmol/L (22-30); Chloride 107 mmol/L (98-107); Estimated CRCL calculation 56 ml/min; Estimated Glomerular Filt Rate > 60; Glucose 103 mg/dL (65-110); Potassium 3.8 mmol/L (3.4-5.0); Sodium 137 mmol/L (137-145)
[2023-10-14 07:56] VITALS: BP 107/53; PULSE 81; RESP 16; TEMP 36.6; O2SAT 99
[2023-10-14] MEDS: CHOLECALCIFEROL 1,000 UNITS TABLET 5000 UNITS PO (09:05)
[2023-10-14] MEDS: ASPIRIN 325 MG ENTERIC TABLET PO (09:05)
[2023-10-14] MEDS: SENNA/DOCUSATE SODIUM TABLET 2 TAB PO (09:05)
[2023-10-14] MEDS: FAMOTIDINE 20 MG TABLET PO (09:05)
[2023-10-14] MEDS: polyethylene glycoL 3350 17 GM POWD.PACK PO (09:05)
[2023-10-14] MEDS: oxyCODONE/ACETAMINOPHEN (*CRX) 5-325 MG TABLET 1 TABLET PO (10:18)
[2023-10-14] MEDS: diazePAM (*CRX) 5 MG TABLET PO (10:19)
[2023-10-14 11:47] VITALS: BP 109/59; PULSE 64; RESP 16; TEMP 36.5; O2SAT 100
--- NOTE | 2023-10-14 11:49 | PM.DS ---
DS: Admitting Diagnosis Discharge Date 10/14/23 Admitting Diagnosis LEFT KNEE DJD DS: Discharge Diagnosis Discharge Diagnosis (1) S/P total knee arthroplasty: Code(s): Z96.659 - Presence of unspecified artificial knee joint Status: Acute Assessment and Plan: S/P LEFT TKA POD 1 DOING WELL. OK TO DC HOME F/U IN 3 WEEKS. Plan F/U IN 3 WEEKS DS: Summary Hospital Course Reason for hospitalization: LEFT TKA Hospital Course: PATIENT WAS ADMITTED S/P TOTAL KNEE ARTHROPLASTY FOR POSTOPERATIVE MEDICAL MANAGEMENT, PAIN CONTROL AND MOBILIZATION WITH PHYSICAL AND OCCUPATIONAL THERAPY. THE PATIENT PROGRESSED WELL WITH PT/OT. LABS AND VITALS REMAINED STABLE AND PAIN WELL CONTROLLED. THE PATIENT HAS BEEN CLEARED TO BE DISCHARGED HOME. FOLLOW UP APPOINTMENT SCHEDULED. DISCHARGE INSTRUCTIONS DISCUSSED AT LENGTH WITH THE PATIENT. MEDICATIONS REVIEWED. Status at Discharge Cognitive/behavioral status at discharge: STABLE Time Spent with Patient Time attestation: Total time spent providing and/or coordinating discharge services: Exam Extrem: Other: VSS AFEBRILE DRESSING DRY NV INTACT NEG HOMANS SIGN, CALF SOFT NON TENDER THIGH SOFT NON TENDER, INCISION CLEAN AND DRY DS: Data Data Completed and Pending Labs on day of discharge: Labs from last 24 hours 10/14/23 05:49 WBC 10.2 H RBC 3.30 L Hgb 8.4 L Hct 28.0 L MCV 84.8 MCH 25.5 L MCHC 30.0 L RDW 15.0 H Plt Count 239 MPV 9.9 Immature Gran % (Auto) 0.5 Neut % (Auto) 80.0 H Lymph % (Auto) 10.7 L Mingo % (Auto) 8.7 H Eos % (Auto) 0.0 Baso % (Auto) 0.1 L Lymph # (Auto) 1.09 Mingo # (Auto) 0.9 H Eos # (Auto) 0.0 Baso # (Auto) 0.0 Abs Immat Gran (auto) 0.05 H Absolute Neuts (auto) 8.2 H Absolute Nucleated RBC 0.000 Nucleated RBC % 0.0 Sodium 137 Potassium 3.8 Chloride 107 Carbon Dioxide 27 Anion Gap 3 L BUN 18 H Creatinine 0.80 Estim Creat Clear Calc 56 Estimated GFR > 60 Glucose 103 Calcium 7.8 L Procedures/Treatments: LEFT TKA Discharge Plan Discharge Patient Disposition: Home Health Service Discharge Instructions: Post Op Total Knee Replacement Instructions Dr. Trav Becerra [phone] Your dressing will be changed prior to your discharge. You will be sent home with one additional dressing to be changed on post op day 7 by the home health RN. Your jacobo will be removed on the 14th day after surgery and steri-strips will be placed. Please practice good hand hygiene and do not touch your incision in order to prevent infection. You may shower with your dressing but do not submerge in a bath tub. Do not drive or operate machinery until you are released by Dr. Becerra. Do not walk without a walker for any reason until you are released by Dr. Becerra. Continue to use your ice machine. Please use a towel or pillow case to protect your skin before applying your ice machine. Do NOT place a pillow under your knee. You may use a pillow from the calf down if needed. This will prevent a flexion contracture postoperatively. You may begin use of your CPM machine at home if you have been given one pre-operatively. DO NOT USE WHILE YOU ARE SLEEPING. Your first post op appointment was sent to you via mail preoperatively. If you have any questions or are unable to make your appointment, please contact our office for scheduling questions. Your medications have been sent to your pharmacy. You have been sent home with pain medication. Please pick up driver an over the counter stool softener to prevent constipation due to narcotic use. Please keep this in mind during your postoperative recovery. If you are not experiencing regular bowel movements, please contact our office for further instruction. Please contact our office with any questions/concerns regarding your knee at [phone]. Per Care Coordination: Patient to have [facility] for RN/PT/OT eval and treat [phone]. RN please fax discharge in
== END 2023-10-14 13:55 | disposition home health service (06) ==
LOC: ANHSURGERY 06:12 → ANH3MEDSUR 12:31
PROVIDERS: PCP Family Medicine; Visit Provider Orthopaedic Surgery
PROC: (CPT 27447; principal; 2023-10-13 08:30)
DX: M17.12 Unilateral primary osteoarthritis, left knee (principal); G89.18 Other acute postprocedural pain; E78.2 Mixed hyperlipidemia; I10 Essential (primary) hypertension; I34.1 Nonrheumatic mitral (valve) prolapse; Z87.891 Personal history of nicotine dependence; Z79.82 Long term (current) use of aspirin
CPT/HCPCS: 27447; 64447; 36415; 73560; 80048; 85025; 86850; 86900; 86901; 97110; 97116; 97161; 97165; 97530; 97535; A9270; C1713; C1776; J0171; J0690; J1100; J1170; J1741; J1885; J2250; J2270; J2405; J2550; J2704; J2795; J3010; J7030; J7120

== ENCOUNTER 2023-11-17 13:29 | Outpatient (CLI) | payer MEDICARE, OTHER, SELFPAY ==
--- NOTE | ~2023-11-17 | CT_ITS ---
EXAMINATION:CT lung screening DATE: 11/17/2023 13:52 INDICATION: Personal history of nicotine dependence. 40 pack year history. TECHNIQUE: Computed tomography (CT) of the chest was performed without intravenous contrast. Automate d exposure control and iterative reconstruction technique were employed. The dose-length product (DLP ) was 97.09 mGy-cm. COMPARISON: CT abdomen and pelvis 02/21/2021 FINDINGS: The lungs demonstrate mild atelectasis. No pleural effusion. The heart size is normal. Ther e are coronary artery calcifications. No pericardial effusion. There is a moderate-sized sliding hiat al hernia. There is cortical thinning of the kidneys. There is moderate thoracic spondylosis. There i s mild chronic anterior wedging of multiple vertebral bodies. IMPRESSION: 1. Lung-RADS category 1: Negative. 2. Moderate-sized sliding hiatal hernia. Reviewed, dictated and finalized at location A.
== END 2023-11-17 13:30 | disposition home or self-care (01) ==
LOC: ANHIMG 13:32
PROVIDERS: PCP Family Medicine; Visit Provider Family Medicine
DX: Z12.2 Encounter for screening for malignant neoplasm of respiratory organs (principal); Z87.891 Personal history of nicotine dependence; K44.9 Diaphragmatic hernia without obstruction or gangrene
CPT/HCPCS: 71271

== ENCOUNTER 2024-01-13 12:28 | Outpatient (CLI) | payer MEDICARE, OTHER, SELFPAY ==
[2024-01-13 12:55] LABS: Hemoglobin 10.5 g/dL (12.0-15.0); Mean Corpuscular Hemoglobin 23.6 pg (26-34); Mean Corpuscular Volume 78.8 fl (80-100); Mean Platelet Volume 9.6 fl (7.4-10.4); Platelet Count Result 363 k/mm3 (150-375); Red Blood Count 4.44 M/mm3 (4.2-5.4); Red Cell Distribution Width 15.1 % (11.5-14.5); White Blood Count 5.2 K/mm3 (4.5-10.0)
[2024-01-13 13:10] LABS: Add Urine Microscopic? NO; Appearance Urine Clear (Clear); Bilirubin Urine Negative (Negative); Blood Urine Negative (Negative); Color Urine Yellow (Yellow); Glucose Urine UA Negative (Negative); Ketones Urine Negative (Negative); Leukocyte Esterase Ur Negative LEU/UL (Negative); Nitrate Urine Negative (Negative); Protein Urine Negative (Negative); Specific Grav Ur 1.004 (1.001-1.035); Urobilinogen Urine 0.2 mg/dL (<2.0)
[2024-01-13 13:20] LABS: Albumin Level 4.1 g/dL (3.5-5.1); Anion Gap 7 mmol/L (4-12); Blood Urea Nitrogen 19 mg/dL (7-17); Calcium 8.9 mg/dL (8.4-10.2); Carbon Dioxide 29 mmol/L (22-30); Chloride 102 mmol/L (98-107); Estimated Glomerular Filt Rate > 60; Glucose 95 mg/dL (65-110); Phosphorus 3.3 mg/dL (2.5-4.5); Potassium 4.7 mmol/L (3.4-5.0); Sodium 138 mmol/L (137-145); Uric Acid 4.6 mg/dL (2.5-7.5)
== END 2024-01-13 12:29 | disposition home or self-care (01) ==
PROVIDERS: PCP Family Medicine; Visit Provider Internal Medicine Nephrology
DX: E78.2 Mixed hyperlipidemia (principal); I10 Essential (primary) hypertension; N20.0 Calculus of kidney; R94.4 Abnormal results of kidney function studies
CPT/HCPCS: 36415; 80069; 81003; 84550; 85027

== ENCOUNTER 2024-04-12 00:49 | Day surgery (SDC) | payer MEDICARE, OTHER, SELFPAY ==
--- NOTE | 2024-03-28 12:57 | PC.NURSE ---
Report to the Outpatient Waiting Room, entrance under the green pavilion located off [facility], at time 6:30 AM on date 04/12/24 . Planned Procedure Time: _8:30 AM .? Time changes happen often and if your time is changed the preop area will call you the afternoon before. - You and your visitor will be asked to self-screen and do not enter if you have any COVID symptoms. Please call surgeon if you need to reschedule. - A mask is optional within the hospital at this time. Patients may have clear liquids (water, carbonated beverages, clear teas, apple juice) until 3 hours prior to surgery( 5:30 AM) with a maximum of 20 ounces. - No food from midnight until time of surgery and no smoking - Infants may have breast milk until 4 hours before surgery, formula 6 hours prior to surgery. - Children will be allowed to drink immediately following surgery.? If applicable, please bring a bottle or sippy cup to assist with drinking. Juice, water, soda, and popsicles are readily available.? For infants on formula, please bring formula the day of surgery.? Pacifiers are allowed. Take only the following medications with a SIP of water on the morning of surgery: _NONE DO NOT STOP ANY OF YOUR OTHER PRESCRIPTION MEDICATIONS PRIOR TO SURGERY EXCEPT THE FOLLOWING Medications to discontinue per physician _HOLD ALL VITAMINS AND SUPPLEMENTS 3 DAYS PRE OP.LAST DOSE 04/08/24. ASPIRIN AND ALEVE PER DR PAIGE Please no make-up, nail peruvian, hairspray, perfume, deodorant, or body powder the day of surgery.? No jewelry (including any body piercings) or valuables the day of surgery, leave them at home.? Please take a shower or bath the night before, or the morning of, surgery with an antibacterial soap.? Wear comfortable, loose fitting clothing.? Children are encouraged to wear pajamas. - Jewelry must be removed prior to entering the operating room.? Rings and piercings that are not removed may be cut off. - The hospital will not accept responsibility for valuables.? - Please leave all valuables, including medications, at home the day of surgery. If you are going home after surgery, a licensed clamp truck driver must drive you home.? - NO public transportation without another adult if you receive anesthesia. - We recommend that an adult stay with you for 24 hours following discharge. - We also recommend that you do not drive, make important decision, drink alcoholic beverages, or take any drugs that were not prescribed by your health care provider for at least 24 hours after your discharge time. For Pediatric surgeries, we recommend two adults accompany the child home. Follow any additional instructions given to you from your surgeon. Telephone instructions given to __PATIENT and asked if any additional questions and then verbalized understanding. Patient advised to call surgeon office or pre surgery nurse liaison [phone] if any additional questions.
[2024-03-28 13:05] VITALS: BMI 31.8
[2024-04-12] VITALS (11 sets, daily range): BP systolic 105–161; BP diastolic 64–91; PULSE 66–82; RESP 12–20; TEMP 36.2–36.3; O2SAT 91–100
--- NOTE | 2024-04-12 08:47 | WPDHPUPDATE1 ---
History and Physical Update Update Date/Time: 04/12/24 08:47 History and Physical has been reviewed, including an updated exam of the patient. There are NO changes in the patient's condition. Risks, benefits, and alternatives have been discussed and questions answered. Patient agrees to proceed with procedure.
[2024-04-12] MEDS: CELECOXIB 200 MG CAPSULE PO (09:35)
[2024-04-12] MEDS: ACETAMINOPHEN 500 MG TABLET 1000 MG PO (09:35)
[2024-04-12] MEDS: LACTATED RINGERS 1,000 ML 30 ML IV CONT ×2 (09:50→13:26)
[2024-04-12 10:26] LABS: Anion Gap 7 mmol/L (4-12); Blood Urea Nitrogen 19 mg/dL (7-17); Calcium 8.6 mg/dL (8.4-10.2); Carbon Dioxide 27 mmol/L (22-30); Chloride 105 mmol/L (98-107); Estimated CRCL calculation 66 ml/min; Estimated Glomerular Filt Rate > 60; Glucose 103 mg/dL (65-110); Potassium 4.1 mmol/L (3.4-5.0); Sodium 139 mmol/L (137-145)
[2024-04-12 10:27] LABS: Prothrombin Time 13.3 Seconds (11.1-14.7)
[2024-04-12 10:28] LABS: Partial Thromboplastin Time 28.2 Seconds (22.3-36.8)
--- NOTE | 2024-04-12 11:11 | WPDANESEPPF ---
Anes - Initial Pre Proc Eval Procedure: Operation Date: 04/12/24 11:30 Proposed Procedures p Left Rotator Cuff Repair - Trav Becerra MD Date/Time: 04/12/24 11:11 Surgeon: Trav Becerra MD Pre Op Diagnosis: Lt Rot Cuff Tear Patient Data Age: 73 Gender: F Height: 1.6 m Weight: 85.7 kg Last Vital Signs Temp 36.2 C L 04/12/24 09:51 Pulse 76 04/12/24 09:51 Resp 16 04/12/24 09:51 BP 150/84 H 04/12/24 09:51 Pulse Ox 96 04/12/24 09:51 O2 Del Method Room Air 04/12/24 09:51 Allergies Allergy/AdvReac Type Severity Reaction Status Date / Time No Known Allergies Allergy Verified 04/12/24 09:27 Home Medications Medication Instructions Recorded Confirmed Type cranberry extract 500 mg capsule 650 mg PO DAILY 09/18/20 03/28/24 History Lactobacillus 1 cap PO DAILY 11/12/20 04/12/24 History acidophilus-Bifidobac.animalis 2.5 billion cell capsule (Daily Probiotic) aspirin 81 mg tablet 81 mg PO HS 11/12/20 04/12/24 History cholecalciferol (vitamin D3) 125 125 mcg PO DAILY 11/12/20 04/12/24 History mcg (5,000 unit) tablet magnesium 500 mg tablet 15 mg PO DAILY 11/12/20 04/12/24 History vitamin B complex 1 cap PO DAILY 11/12/20 04/12/24 History omega 0-ndh-izz-fish oil 1,000 mg 1 cap PO DAILY 01/13/23 04/12/24 History (120 mg-180 mg) capsule naltrexone 8 mg-bupropion 90 mg 2 tablet PO BID #360 tabs 08/18/23 04/12/24 Rx tablet,extended release (Contrave) omeprazole 40 mg capsule,delayed 40 mg PO DAILY #90 caps 08/19/23 04/12/24 Rx release hyoscyamine sulfate 0.375 mg 0.375 mg PO DAILY 09/29/23 04/12/24 History tablet,extended release,12 hr multivitamin 1 tablet PO DAILY 09/29/23 04/12/24 History turmeric 400 mg capsule 1,000 mg PO DAILY 09/29/23 04/12/24 History biotin 1 mg capsule 1 mg PO DAILY 02/11/24 04/12/24 History nitrofurantoin 100 mg PO PRN PRN UTI'S 02/11/24 03/28/24 History monohydrate/macrocrystals 100 mg capsule clindamycin phosphate 1 % topical 1 applic topical DAILY #30 grams 03/25/24 04/12/24 Rx gel naproxen sodium 220 mg capsule 440 mg PO Q12H PRN Pain 03/28/24 04/12/24 History (Aleve) Laboratory Tests 04/12/24 09:31 PT 13.3 Seconds (11.1-14.7) INR 1.0 APTT 28.2 Seconds (22.3-36.8) Sodium 139 mmol/L (137-145) Potassium 4.1 mmol/L (3.4-5.0) Chloride 105 mmol/L (98-107) Carbon Dioxide 27 mmol/L (22-30) Anion Gap 7 mmol/L (4-12) BUN 19 H mg/dL (7-17) Creatinine 0.70 mg/dL (0.7-1.0) Estim Creat Clear Calc 66 ml/min Estimated GFR > 60 (59 - ) Glucose 103 mg/dL (65-110) Calcium 8.6 mg/dL (8.4-10.2) Patient hx anesthesia problems: none Family hx anesthesia problems: none Results Review: All pre-operative results and documents have been reviewed as part of the pre-operative evaluation. 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 Essential hypertension Ganglion cyst Liver cyst Marital conflict Mass of breast, right Mass of left wrist Mitral valve prolapse Mixed hyperlipidemia Hayes's neuroma of both feet Obesity (BMI 30.0-34.9) Other fatigue Post-menopausal Reflux esophagitis Rotator cuff tear Screening for breast cancer Screening for osteoporosis UTI (urinary tract infection) Surgical History Surgical History H/O abdominoplasty H/O: hysterectomy History of surgical removal of skin lesion 2020 S/P total knee arthroplasty LT TKA 10/13/2023 Family History Family History Sibling Hypertension Family history of diabetes mellitus in first degree relative Family history of lung cancer Dialysis patient Diabetes mellitus Father Family history of heart disease in male family member before age 55 Cerebrovascular accident CHF (congestive heart failure) Mother Family history of heart disease in male family member before age 55 HOCM (hypertrophic obstructive cardiomyopathy) Sibling Diabetes mellitus Dialysis patient Lung cancer Sibling Lung cancer Other Family history of arthritis Family history of cardiovascular disease Social History Social History Smoking packs per day: 1 Smoking cigarettes per day: 20.0 Years smoked: 30 Smoking pack-years: 30.00 Smoking status: Former smoker Tobacco type: cigarettes Second hand tobacco smoke exposure: Yes Smoking end date: 06/01/03 Alcohol intake: current Drinks per week: 1 Substance use: never Substance use type: does not use Do You Feel Safe in your Home?: Yes Lack of Transportation: No Lack of Food: Never True Current Housing: I Have Housing Concerned About Future Housing: No Difficulty Paying Gas/Electric Bills: No Difficulty Paying for Meds: No Currently Unemployed: No Education: High School Diploma/GED Difficulty w/ Childcare or Family Care: No Living arrangements: with family Occupation/Education: retired 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 Informed Consent: The patient's anesthetic plan and its attendant risks and benefits were discussed with the patient/family/POA. Questions were solicited and answers provided to the satisfaction of the patient/family/POA.
--- NOTE | 2024-04-12 11:12 | WPDANESPNB ---
Anes - Peripheral Nerve Block Date/Time: 04/12/24 11:12 I have discussed with the patient/family/POA the placement of a peripheral nerve block for post-operative pain management, including associated risks, benefits, complications, and side effects. Alternative methods of post-operative analgesia were detailed. Questions were solicited and answers provided to the satisfaction of the patient/family/POA. Time-Out: A pre-procedural Time-Out was completed immediately before starting the procedure and confirmed: Patient Identification, Site, Procedure, Patient Position and the Availability of Requisite Equipment. Clinical Indications: Acute post-operative pain management requested by the operative surgeon. Nerve Block Insertion Note Anes-nerve block: interscalene left Patient position: supine Skin prep: chlorhexidine Needle: 22 gauge, stimulating, insulated echogenic needle. Needle length: 50 mm Technique: ultrasound Injectate: bupivacaine 0.5% with epi 5 mcg/ml (20cc- no epi) Observations: tolerated well Complications: none Procedure start time:: 1121 Procedure end time:: 1124
[2024-04-12] MEDS: ceFAZolin 2 GM/D5W 50 ML 2 GM/50 ML BAG IVPB (11:42)
--- NOTE | 2024-04-12 13:22 | P.OP_ITS ---
Procedure Note - Detailed Date of Procedure 04/12/24 Pre-op Diagnosis Lt Rot Cuff Tear Post-op Diagnosis Same Procedure Performed REPAIR LEFT ROTATOR CUFF Surgeon Trav Becerra MD Anesthesia General Findings NEAR FULL THICKNESS ROTATOR CUFF TEAR Description of Procedure THE PATIENT WAS TAKEN TO THE OPERATING ROOM AND THEN INTUBATED AND PLACED IN THE BEACH CHAIR POSITION. THE LEFT UPPER EXTREMITY WAS PREPPED AND DRAPED IN THE NORMAL STERILE FASHION. AN INCISION WAS MADE IN BETWEEN THE CLAU-LATERAL ACROMION AND THE AC JOINT. THE FASCIA WAS IDENTIFIED. NEXT A MINI OPEN INCISION WAS MADE THROUGH THE DELTOID MUSCLE EXPOSING THE SUBACROMIAL SPACE. A LIMITED ACROMIOPLASTY WAS PREFORMED. THE ROTATOR CUFF WAS IDENTIFIED. THERE WAS A NEAR FULL THICKNESS TEAR. IT MEASURED APPROXIMATELY 1.5 CM X 1 CM. THE TEAR WAS DEBRIDED TO GOOD TISSUE. THE GREATER TUBEROSITY WAS DEBRIDED TO BLEEDING BONE. 1 ARTHREX 5.5 SUTURE ANCHOR WAS PLACED IN TO GOOD BONE AND HAD A VERY GOOD BITE. PHU-WILLI TYPE REPAIRS WERE DONE TO THE ROTATOR CUFF AND THERE WAS GOOD AP PROXIMATION TO THE GREATER TUBEROSITY. THE REPAIR WAS EXCELLENT. THERE WAS NO IMPINGEMENT ON THE REPAIR FROM THE ACROMION WITH RANGE OF MOTION. THE WOUND WAS IRRIGATED WITH COPIOUS AMOUNTS OF ANTIBIOTIC SOLUTION. THE DELTOID MUSCLE WAS REPAIRED WITH #2 FIBER WIRE AND 0 VICRYL SUTURE. THE SUBCUTANEOUS LAYER WAS APPROXIMATED WITH 2-0 VICRYL. THE SKIN WAS APPROXIMATED WITH 3-0 QUIL AND DERMABOND. STERILE DRESSING WAS APPLIED. PATIENT WAS EXTUBATED. Estimated Blood Loss 20 Complications No immediate complications Condition Stable Disposition PACU
[2024-04-12] MEDS: ONDANSETRON INJ 4 MG/2 ML VIAL IV PUSH (13:51)
== END 2024-04-12 16:35 | disposition home or self-care (01) ==
PROVIDERS: PCP Family Medicine; Visit Provider Orthopaedic Surgery
PROC: (CPT 23420; principal; 2024-04-12 11:30)
DX: M75.102 Unspecified rotator cuff tear or rupture of left shoulder, not specified as traumatic (principal); G89.18 Other acute postprocedural pain; I10 Essential (primary) hypertension; E78.2 Mixed hyperlipidemia; Z87.891 Personal history of nicotine dependence; E66.9 Obesity, unspecified; Z68.33 Body mass index [BMI] 33.0-33.9, adult
CPT/HCPCS: 23412; 64415; 36415; 80048; 85610; 85730; A9270; C1713; J0690; J1100; J2250; J2405; J2704; J7120

== ENCOUNTER 2024-08-04 08:14 | Outpatient (CLI) | payer MEDICARE, OTHER, SELFPAY ==
--- NOTE | ~2024-08-04 | XR_ITS ---
Exam: Abdomen 1V HISTORY: N20.0 - Calculus of kidney COMPARISON: 06/02/2023 TECHNIQUE: Supine images of the abdomen FINDINGS: Bowel gas pattern is non-obstructive. There is no free air or deep sulci. No pathologic calcifications are seen. Lung bases are unremarkable. Bones and soft tissues are unremarkable. IMPRESSION: Nonspecific, nonobstructive bowel gas pattern. No discrete calculi projecting over the expected regions of the bilateral kidneys Reviewed, dictated and finalized at location A. ING UTILITY TENDER IMPRESSION: Nonspecific, nonobstructive bowel gas pattern. No discrete calculi projecting over the expected regions of the bilateral kidne ys
--- OUTSIDE RECORDS SUMMARY | 2024-08-04 08:23 | XMS_ITS | Referral Summary ---
Author Organization [facility] Address [address] [place] [address] Care Team Providers Care Housing Management Representative Name Role Phone Jak Talamantes MD Primary Care Provider [phone] Allergies No known active allergies Medications esomeprazole DR (NexIUM) 40 mg capsule 40 mg daily Active nitrofurantoin monohydrate (MACROBID) 100 mg capsule TK ONE C PO BID WHEN HAVING SYMPTOMS OF URINARY TRACT INFECTION 3 9 Active aspirin-calcium carbonate 81 mg-300 mg calcium(777 mg) tablet Take 81 mg by mouth 7 Active cholecalciferol (VITAMIN D-3) 5,000 unit capsule 5 Active cranberry extract (CRANBERRY CONCENTRATE) 500 mg capsule 5 Active flaxseed oil 1,000 mg capsule 5 Active naproxen (NAPROSYN) 250 mg tablet 4 Active niacin ER (NIASPAN) 500 mg CR tablet Take by mouth 7 Active omega-3 fatty acids (LOVAZA) 1 gram capsule 5 Active turmeric root extract 500 mg capsule Take by mouth Active Active Problems Problem Noted Date Diagnosed Date Other melanin hyperpigmentation 03/18/2017 Other seborrheic keratosis 03/18/2017 Xerosis cutis 03/18/2017 Splenic artery aneurysm 2016 Assessment & Plan (11/10/2018 11:02 AM CDT): Impression: Asymptomatic 1 cm peripherally calcified splenic artery aneurysm which remains unchanged in comparison to CT performed 1 year prior. Plan: No surgical intervention needed. No further vascular surgical surveillance recommended. Patient follow-up on as-needed basis. 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 Gender Identity Not on file Sexual Orientation Not on file Last Filed Vital Signs Vital Sign Reading Time Taken Comments Blood Pressure 179/92 11/04/2018 9:30 AM CDT Pulse 67 11/04/2018 9:30 AM CDT Temperature 36.8 C (98.2 F) 11/04/2018 9:30 AM CDT Respiratory Rate - - Oxygen Saturation - - Inhaled Oxygen Concentration - - Weight 89.8 kg (198 lb) 11/04/2018 9:30 AM CDT Height 162.6 cm (5' 4 ) 11/04/2018 9:30 AM CDT Body Mass Index 33.99 11/04/2018 9:30 AM CDT Plan of Treatment Not on file Insurance MEDICARE [employer] Care Teams Housing Management Representative Relationship Specialty Start Date End Date Jak Talamantes MD PCP - General Family Medicine 10/08/18
--- OUTSIDE RECORDS SUMMARY | 2024-08-04 08:23 | XMS_ITS | Clinical Summary ---
Author Organization [facility] Address [address] [place] [id number] Phone Care Team Providers Care Agency Director Name Role Phone Jak Talamantes MD Primary Care Provider [phone] Allergies No known active allergies Medications Medication Sig Dispensed Refills Start Date End Date Status omega-3 (FISH OIL) 1000 MG capsule 05/02/2015 Active Cholecalciferol (VITAMIN D3) 5000 units capsule 05/02/2015 Active Flaxseed, Linseed, (FLAX SEED OIL) 1000 MG capsule 05/02/2015 Active aspirin 81 MG tablet Take 81 mg by mouth 03/18/2017 Active omeprazole (PriLOSEC) [address] capsule 04/29/2019 Active Multiple Vitamins-Minerals (MULTI VITAMIN/MINERALS) tablet Take 1 tablet by mouth daily Active naproxen sodium (ALEVE) 220 MG tablet Take 440 mg by mouth daily Active TURMERIC PO Take 1 capsule by mouth daily Active niacin 500 MG tablet Take 500 mg by mouth 03/18/2017 Active Cranberry 200 MG capsule 08/10/2018 Active Saccharomyces boulardii (DAILY PROBIOTIC SUPPLEMENT PO) 11/30/2019 Active ammonium lactate (AMLACTIN) 12 % cream Apply to affected area two times daily. 08/03/2020 Active hyoscyamine (ANASPAZ) 0.125 MG tablet TAKE 1 TABLET BY MOUTH BEFORE MEALS AND AT BEDTIME 06/28/2021 Active Active Problems Problem Noted Date Diagnosed Date Aneurysm of splenic artery 2016 Overview (05/13/2019): Last Assessment & Plan: Impression: Asymptomatic 1 cm peripherally calcified splenic artery aneurysm which remains unchanged in comparison to CT performed 1 year prior. Plan: No surgical intervention needed. No further vascular surgical surveillance recommended. Patient follow-up on as-needed basis. Acute cystitis without hematuria 09/06/2014 Calculus of kidney 10/31/2013 Essential (primary) hypertension 10/31/2013 Immunizations Name Administration Dates Next Due Influenza TIV (IM) 08/12/2021(Deferred: Patient Refused) Pneumococcal Polysaccharide 07/10/2019 Family History Medical History Relation Comments Heart disease Father Heart disease Mother Cerebrovascular accident Sibling Kidney disease Sibling Anemia Neg Hx Coronary arteriosclerosis Neg Hx Diabetes mellitus Neg Hx Dyslipidemia Neg Hx Hypertensive disorder Neg Hx Kidney stone Neg Hx Malignant neoplastic disease Neg Hx Relation Status Comments Father Mother Sibling Social History Tobacco Use Types Packs/Day Years Used Date Smoking Tobacco: Former Smokeless Tobacco: Never Alcohol Use Standard Drinks/Week Comments Yes 0 (1 standard drink = 0.6 oz pur e alcohol) occasionally Sex and Gender Information Value Date Recorded Sex Assigned at Female 11/09/2019 8:51 AM MDT Gender Identity Female 11/09/2019 8:51 AM MDT Sexual Orientation Straight 11/09/2019 8: 51 AM MDT Last Filed Vital Signs Vital Sign Reading Time Taken Comments Blood Pressure 124/68 08/12/2021 9:39 AM CDT Pulse 60 08/12/2021 9:39 AM CDT Temperature 35.6 C (96 F) 08/12/2021 9:39 AM CDT Respiratory Rate - - Oxygen Saturation - - Inhaled Oxygen Concentration - - Weight 84.8 kg (187 lb) 08/12/2021 9:39 AM CDT Height 162.6 cm (5' 4 ) 08/12/2021 9:39 AM CDT Body Mass Index 32.1 08/12/2021 9:39 AM CDT Plan of Treatment Health Maintenance Due Date Last Done Comments Pneumococcal PPSV23/PCV13 65 + Years / Low and Medium Risk (2 of 3 - PCV) 07/10/2020 07/10/2019 Influenza Vaccine (#1) 2024 Care Teams Agency Director Relationship Specialty Start Date End Date Jak Talamantes MD [address] [place] [id number] PCP - General Family Medicine 05/18/19
--- OUTSIDE RECORDS SUMMARY | 2024-08-04 08:23 | XMS_ITS | Clinical Summary ---
Author Organization [facility] Address [address] [place] [address] Care Team Providers Care Field Producer Name Role Phone Jak Talamantes MD Primary Care Provider [phone] Source Comments [facility],non-owned Affiliates and Associated Physician Practices is amultiple site organization consisting of ambulatory clinics and hospital sitesin [place], [place], [place] and [place]. This disclosure is being madepursuant to the Care Everywhere program and may not contain all information available regarding this patient. Last updated 18.[facility] Allergies No known active allergies Medications * Be aware that medications may not be up to date on this document. Alwaysverify current medications with the patient. Medication Sig Dispensed Refills Start Date End Date Status aspirin (ASPIRIN) 81 MG tablet Take 1 (one) tablet by mouth DAILY 03/18/2017 Active Probiotic Product (ACIDOPHILUS/GOAT MILK) CAPS Take by mouth daily with dinner. 03/18/2017 Active Turmeric 450 MG Take by mouth daily with dinner. 03/18/2017 Active Cyanocobalamin (VITAMIN B 12) 100 MCG Take by mouth daily with dinner. 03/18/2017 Active vitamin D3 (CHOLECALCIFEROL) 125 MCG (5000 UT) capsule Take 1 (one) capsule by mouth once daily Active cranberry fruit 450 MG tablet Take 1 (one) tablet by mouth once daily Active Vitamins/Minerals TABS Take 1 (one) tablet by mouth once daily Active naproxen sodium (ALEVE) 220 MG tablet Take 2 (two) tablets by mouth once daily Active [place]-3 Fatty Acids (FISH OIL) 1000 MG capsule Take 2,400 mg by mouth once daily Active omeprazole (PRILOSEC) 40 MG capsule Take 1 (one) capsule by mouth daily before breakfast Active hyoscyamine (LEVSIN) 0.125 MG IR tablet TAKE 1 TABLET BY MOUTH BEFORE MEALS AND AT BEDTIME 09/13/2021 Active ammonium lactate (Lac-Hydrin) 12 % creamIndications:Ra sh Apply to affected area on legs two times daily. 30 day supply. 385 g 11 06/06/2022 Active triamcinolone acetonide (Kenalog) 0.1 % ointmentIndications :Rash Apply to affected areas on the legs twice daily as needed for itch. 30 day supply. 80 g 1 06/06/2022 Active clobetasol (Temovate) 0.05 % ointmentIndications :Dermatitis Apply to legs twice daily as needed for rash. 30 days supply. Reasons: Skin Inflammation 60 g 2 12/11/2023 Active Active Problems Problem Noted Date Diagnosed Date AK (actinic keratosis) 06/06/2022 History of basal cell carcinoma of skin 06/06/19 23 Multiple benign melanocytic nevi of upper and lower extremities and trunk 06/06/2022 Actinic skin damage 06/06/2022 Seborrheic keratoses 06/06/2022 Xerosis cutis 03/18/2017 Other melanin hyperpigmentation 03/18/2017 Inflamed seborrheic keratosis 03/18/2017 Resolved Problems Problem Noted Date Diagnosed Date Resolved Date Rash 06/06/2022 07/04/2022 Basal cell carcinoma (BCC) of right cheek 08/22/2020 08/22/2020 Family History Medical History Relation Name Comments None Known Brother Cancer - Skin, Non Melanoma Father None Known Maternal Aunt None Known Maternal Grandfather None Known Maternal Grandmother None Known Maternal Uncle None Known Mother None Known Other None Known Paternal Aunt None Known Paternal Grandfather None Known Paternal Grandmother None Known Paternal Uncle Cancer - Skin, Non Melanoma Sister 1 Cancer Sister 2 Cancer - Skin, Non Melanoma Sister 2 Allergy (Severe) Neg Hx Asthma Neg Hx CVA Neg Hx Cancer - Breast Neg Hx Cancer - Other Neg Hx Cancer - Skin, Melanoma Neg Hx Eczema Neg Hx Hemophilia Neg Hx Psoriasis Neg Hx Rashes/Skin Problems Neg Hx Relation Name Status Comments Brother Father Maternal Aunt Maternal Grandfather Maternal Grandmother Maternal Uncle Mother Other Paternal Aunt Paternal Grandfather Paternal Grandmother Paternal Uncle Sister 1 Sister 2 Social History Tobacco Use Types Packs/Day Years Used Date Smoking Tobacco: Former Smokeless Tobacco: Never Tobacco Cessation:Counseling Given: Not Answered Alcohol Use Standard Drinks/Week Comments No 0 (1 standard drink = 0.6 oz pur e alcohol) Sex and Gender Information Value Date Recorded Sex Assigned at Not on file Gender Identity Not on file Sexual Orientation Not on file Last Filed Vital Signs Vital Sign Reading Time Taken Comments Blood Pressure 168/92 08/21/2020 12:06 PM CDT Pulse 78 08/21/2020 12:06 PM CDT Temperature - - Respiratory Rate - - Oxygen Saturation - - Inhaled Oxygen Concentration - - Weight 90.7 kg (200 lb) 08/21/2020 7:19 AM CDT Height 162.6 cm (5' 4 ) 08/21/2020 7:19 AM CDT Body Mass Index 34.33 08/21/2020 7:19 AM CDT Plan of Treatment Upcoming Encounters Date Type Department Care Team (Late st Contact Info) Description 12/16/2024 9:40 AM CDT Office Visit [facility] - Dermatology [address] [place] [address], [place] [address] Kendra Ramos MD [address] [place] [address] [address] [place] [address] Health Maintenance Due Date Last Done Comments BONE DENSITY TESTING 1950 COLOGUARD (AGES 45-75) - COLON CA SCREENING [address] COLONOGRAPHY - COLON CA SCREENING 1950 FIT - COLON CA SCREENING 1950 FLEX SIG - COLON CA SCREENING 1952 LIPID TESTING 1950 MAMMOGRAM 1950 MEDICARE AWV 12 MONTHS 1952 HEPATITIS C SCREENING 11/16/1970 DTAP/TDAP/TD VACCINES (1 - Tdap) 11/21/1971 PNEUMOCOCCAL VACCINE 50+ (1 of 1 - PCV) 2002 ZOSTER VACCINE (1 of 2) 2002 COVID-19 VACCINE ( season) 2024 INFLUENZA VACCINE (#1) 2024 9, 06/28/2007, 05/15/2006, Additional history exists DEPRESSION SCREENING 06/01/2024 Respiratory Syncytial Virus (RSV) Vaccine Pt: or over 60 yrs (1 - 1-dose 75+ series) 11/21/2027 COLONOSCOPY - COLON CA SCREENING 03/19/2031 03/19/2021 Colorectal Cancer Screening 03/19/2031 HEPATITIS B VACCINE Aged Out No longe r eligible based on patient's age to complete this topic HIB VACCINE Aged Out No longer eligi ble based on patient's age to complete this topic HPV VACCINE Aged Out No longer eligi ble based on patient's age to complete this topic MENINGOCOCCAL (Group B) VACCINE Aged Out No longer eligible based on patient's age to complete this topic MENINGOCOCCAL VACCINE Aged Out No alexa clayton eligible based on patient's age to complete this topic Care Teams Field Producer Relationship Specialty Start Date End Date Jak Talamantes MD [address] [place] [address] PCP - General 04/17/14
--- OUTSIDE RECORDS SUMMARY | 2024-08-04 08:23 | XMS_ITS | Clinical Summary ---
Author Organization [facility] [place] [facility] Address [address] [place] [address] Care Team Providers Care Loom Changeover Operator Name Role Phone Jak Talamantes MD Primary Care Provider Allergies No known active allergies Medications esomeprazole [...] of kidney 10/31/2013 Essential (primary) hypertension 10/31/2013 Medical History Medical History Date Comments Aneurysm of splenic artery Social History Tobacco Use Types Packs/Day Years Used Date Smoking Tobacco: Former Smokeless Tobacco: Never Comments Unknown Sex and Gender Information Value Date Recorded Sex Assigned at Not on file 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
--- OUTSIDE RECORDS SUMMARY | 2024-08-04 08:23 | XMS_ITS | Patient Health Summary ---
Author Organization [facility] Address [address] [place] [address] Care Team Providers Care Labor Representative Name Role Phone Jak Talamantes MD Primary Care Provider [phone] Note from [facility],non-owned Affiliates and Associated Physician Practices is amultiple site organization consisting of ambulatory clinics and hospital sitesin [place], [place], [place] and [place]. This disclosure is being madepursuant to the Care Everywhere program and may not contain all information available regarding this patient. Last updated 18.[facility] Allergies No known active allergies Medications * Be aware that medications may not be up to date on this document. Alwaysverify current medications with the patient. * aspirin (ASPIRIN) 81 MG tablet(Started 03/18/2017) Take 1 (one) tablet by mouth DAILY * Probiotic Product (ACIDOPHILUS/GOAT MILK) CAPS(Started 03/18/2017) Take by mouth daily with dinner. * Turmeric 450 MG(Started 03/18/2017) Take by mouth daily with dinner. * Cyanocobalamin (VITAMIN B 12) 100 MCG(Started 03/18/2017) Take by mouth daily with dinner. * vitamin D3 (CHOLECALCIFEROL) 125 MCG (5000 UT) capsule Take 1 (one) capsule by mouth once daily * cranberry fruit 450 MG tablet Take 1 (one) tablet by mouth once daily * Vitamins/Minerals TABS Take 1 (one) tablet by mouth once daily * naproxen sodium (ALEVE) 220 MG tablet Take 2 (two) tablets by mouth once daily * [place]-3 Fatty Acids (FISH OIL) 1000 MG capsule Take 2,400 mg by mouth once daily * omeprazole (PRILOSEC) 40 MG capsule Take 1 (one) capsule by mouth daily before breakfast * hyoscyamine (LEVSIN) 0.125 MG IR tablet(Started 09/13/2021) TAKE 1 TABLET BY MOUTH BEFORE MEALS AND AT BEDTIME * ammonium lactate (Lac-Hydrin) 12 % cream(Started 06/06/2022) Apply to affected area on legs two times daily. 30 day supply. 11 refills by 06/06/2023 * triamcinolone acetonide (Kenalog) 0.1 % ointment(Started 06/06/2022) Apply to affected areas on the legs twice daily as needed for itch. 30 day supply. 1 refill by 06/06/2023 * clobetasol (Temovate) 0.05 % ointment(Started 12/11/2023) Apply to legs twice daily as needed for rash. 30 days supply. Reasons: Skin Inflammation 2 refills by 12/10/2024 Active Problems Problem Noted Date Diagnosed Date [...] carcinoma (BCC) of right cheek 08/22/2020 08/22/2020 Social History Tobacco Use Types Packs/Day Years [...] Mass Index 34.33 08/21/2020 7:19 AM CDT Procedures * TX DESTROY PREMALIG LESION, 1ST LESION(Performed 12/11/2023) Performed for AK (actinic keratosis) * TX DESTROY PREMALIG LESION, 1ST LESION(Performed 12/05/2022) Performed for AK (actinic keratosis) * TX DESTROY PREMALIG LESION, 2-14(Performed 12/05/2022) Performed for AK (actinic keratosis) * TX DESTRUCT BENIGN LESION, 1-14(Performed 12/05/2022) Performed for Inflamed seborrheic keratosis * TX DESTROY PREMALIG LESION, 1ST LESION(Performed 06/06/2022) Performed for AK (actinic keratosis) * TX DESTROY PREMALIG LESION, 2-14(Performed 06/06/2022) Performed for AK (actinic keratosis) * TX DESTRUCT BENIGN LESION, 1-14(Performed 06/06/2022) Performed for Inflamed seborrheic keratosis * TX DESTRUCT BENIGN LESION, 1-14(Performed 10/06/2021) Performed for Inflamed seborrheic keratosis * TX DESTROY PREMALIG LESION, 2-14(Performed 10/06/2021) Performed for AK (actinic keratosis) * TX DESTROY PREMALIG LESION, 1ST LESION(Performed 10/06/2021) Performed for AK (actinic keratosis) * TX DESTRUCT BENIGN LESION, 1-14(Performed 02/08/2021) Performed for Inflamed seborrheic keratosis * TX DESTROY PREMALIG LESION, 2-14(Performed 02/08/2021) Performed for AK (actinic keratosis) * TX DESTROY PREMALIG LESION, 1ST LESION(Performed 02/08/2021) Performed for AK (actinic keratosis) * TX [facility] MOHS MG TQ H/N/H/F/G 1ST STAG 5 BLOC(Performed 08/21/2020) Performed for Basal cell carcinoma (BCC) of right cheek * TX [facility] MOHS MG TQ H/N/H/F/G EA ADDL STAG(Performed 08/21/2020) Performed for Basal cell carcinoma (BCC) of right cheek * TX DESTRUCT BENIGN LESION, 1-14(Performed 08/12/2020) Performed for Inflamed seborrheic keratosis * TX DESTROY PREMALIG LESION, 1ST LESION(Performed 08/12/2020) Performed for AK (actinic keratosis) * TX TANGNTL BX SKIN SINGLE LES(Performed 08/12/2020) Performed for Neoplasm of uncertain behavior of skin * DERMATOPATHOLOGY(Performed 08/03/2020) Performed for Neoplasm of uncertain behavior of skin * TX DESTRUCT BENIGN LESION, 1-14(Performed 02/03/2020) Performed for Seborrheic keratosis, inflamed * DERMATOPATHOLOGY(Performed 04/10/2017) * PATHOLOGY/GENETICS HISTORICAL-ONBASE(Performed 04/10/2017) Results * TX DESTROY PREMALIG LESION, 1ST LESION (12/11/2023 10:24 AM CDT) Kendra De La Fuente MD - 12/11/2023 10:24 AM CDT Kendra Ramos MD 12/11/2023 10:24 AM Liquid nitrogen was applied for 10-12 seconds to the 1 actinic keratosis on chin and the expected blistering or scabbing reaction explained. Do not pick at the area. Patient reminded to expect hypopigmented scars from the procedure. Return if lesion fails to fully resolve. Kendra Ramos MD PROCEDURE/HEATHER R SURGICAL ORDERABLES * TX DESTROY PREMALIG LESION, 2-14, TX DESTROY PREMALIG LESION, 1ST LESION (12/05/2022 11:05 AM CDT) Kendra De La Fuente MD - 12/05/2022 11:05 AM CDT Jamari Dudley MD 12/05/2022 11:05 AM Diagnosis and treatment options discussed. Liquid nitrogen was applied to 2 lesions (scalp, R upper vermilion lip) for 5-7 seconds for 1 cycle. Wound care reviewed. Jamari Dudley MD [facility] Dermatology Resident, PGY-3 Kendra Ramos MD PROCEDURE/HEATHER R SURGICAL ORDERABLES * TX DESTRUCT BENIGN LESION, 1-14 (12/05/2022 11:04 AM CDT) Kendra De La Fuente MD - 12/05/2022 11:04 AM CDT Jamari Dudley MD 12/05/2022 11:04 AM Diagnosis and treatment options discussed. Liquid nitrogen was applied to 3 lesions (R upper back) for 5-7 seconds for 1 cycle. Wound care reviewed. Jamari Dudley MD [facility] Dermatology Resident, PGY-3 Kendra Ramos MD PROCEDURE/HEATHER R SURGICAL ORDERABLES * TX DESTROY PREMALIG LESION, 2-14, TX DESTROY PREMALIG LESION, 1ST LESION (06/06/2022 11:27 AM COAL HIKER) Kendra De La Fuente MD - 06/06/2022 11:27 AM COAL HIKER Ellen Daniel DO 06/06/2022 11:27 AM Diagnosis and treatment options discussed. Cryotherapy (Liquid Nitrogen) to 2 AKs (chin, scalp) for 4-6 seconds. Number of cycles: 1. Wound care reviewed. Ellen Daniel DO PGY-3 [facility] Dermatology Resident Kendra Ramos MD PROCEDURE/HEATHER R SURGICAL ORDERABLES * TX DESTRUCT BENIGN LESION, 1-14 (06/06/2022 11:26 AM COAL HIKER) Kendra De La Fuente MD - 06/06/2022 11:26 AM COAL HIKER Ellen Daniel DO 06/06/2022 11:27 AM Diagnosis and treatment options discussed. Cryotherapy (Liquid Nitrogen) to upper back ISK x 1 for 4-6 seconds. Number of cycles: 1. Wound care reviewed. Ellen Daniel DO PGY-3 [facility] Dermatology Resident Kendra Ramos MD PROCEDURE/HEATHER R SURGICAL ORDERABLES * TX DESTRUCT BENIGN LESION, 1-14 (10/06/2021 9:50 PM CDT) Kendra De La Fuente MD - 10/06/2021 9:50 PM CDT Kendra Ramos MD 10/06/2021 9:50 PM Liquid nitrogen was applied for 10-12 seconds to the 2 skin lesions and the expected blistering or scabbing reaction explained. Do not pick at the area. Patient reminded to expect hypopigmented scars from the procedure. Return if lesion fails to fully resolve. Kendra Ramos MD PROCEDURE/HEATHER R SURGICAL ORDERABLES * TX DESTROY PREMALIG LESION, 1ST LESION, TX DESTROY PREMALIG LESION, 2-14 (10/06/2021 9:49 PM CDT) Kendra De La Fuente MD - 10/06/2021 9:49 PM CDT Kendra Ramos MD 10/06/2021 9:50 PM Liquid nitrogen was applied for 10-12 seconds to the 4 actinic keratosis and the expected blistering or scabbing reaction explained. Do not pick at the area. Patient reminded to expect hypopigmented scars from the procedure. Return if lesion fails to fully resolve. Kendra Ramos MD PROCEDURE/HEATHER R SURGICAL ORDERABLES * TX DESTRUCT BENIGN LESION, 1-14 (02/08/2021 10:29 AM CDT) Kendra De La Fuente MD - 02/08/2021 10:29 AM CDT Kendra Ramos MD 02/08/2021 10:29 AM Liquid nitrogen was applied for 10-12 seconds to the 5 inflamed seborrheic keratosis and the expected blistering or scabbing reaction explained. Do not pick at the area. Patient reminded to expect hypopigmented scars from the procedure. Return if lesion fails to fully resolve. Kendra Ramos MD PROCEDURE/HEATHER R SURGICAL ORDERABLES * TX DESTROY PREMALIG LESION, 1ST LESION, TX DESTROY PREMALIG LESION, 2-14 (02/08/2021 10:28 AM CDT) Kendra De La Fuente MD - 02/08/2021 10:28 AM CDT Kendra Ramos MD 02/08/2021 10:29 AM Liquid nitrogen was applied for 10-12 seconds to the 2 actinic keratosis and the expected blistering or scabbing reaction explained. Do not pick at the area. Patient reminded to expect hypopigmented scars from the procedure. Return if lesion fails to fully resolve. Kendra Ramos MD PROCEDURE/HEATHER R SURGICAL ORDERABLES * TX [facility] MOHS MG TQ H/N/H/F/G EA ADDL STAG, TX [facility] MOHS MG TQ H/N/H/F/G 1ST STAG 5 BLOC (08/21/2020 12:33 PM CDT) Narrative Erik Dang MD - 08/21/2020 12:33 PM CDT Erik Dang MD 08/22/2020 3:20 PM Date of Service: 08/21/2020 Surgery: Mohs micrographic surgery Preop diagnosis: Basal cell carcinoma(pigmented) Postop diagnosis: same Location: right upper cheek Stages: 2 Derm-Path PreOp Size: 1.0x1.0 cm. PostOp Size: 2.0x1.6 cm. Repair Type: advancement flap Repair Size: 6.0x6.6cm Suture Material: monocryl 5-0;prolene 5-0 Mohs Level of Defect: fat Surgeon and Pathologist: Erik Dang MD Assistants: Timur Crawford Indications for Mohs Surgery The patient has a 1.0x1.0 cm tumor located on the right upper cheek. Removal of the patient's tumor is complicated by the following clinical features: Clinical area critical for tissue conservation (Area H: central face, eyelids, eyebrows, nose, lips, chin, ear, periauricular, pentecostalism, genitalia, hands, feet, ankles, nail units and areola); large tumor size; poorly-defined clinical tumor borders Based on my medical judgement, Mohs surgery is the most appropriate treatment for this cancer compared to other treatments. I discussed alternative treatments to Mohs surgery and specifically discussed the risks and benefits of curettage, excision with permanent sections, and foregoing treatment. The rationale for Mohs was explained to the patient and consent was obtained. The risks, benefits and alternatives to therapy were discussed in detail. Specifically, the risks of infection, scarring, bleeding, prolonged wound healing, incomplete removal, allergy to anesthesia, nerve injury and recurrence were addressed. Prior to the procedure, the treatment site was clearly identified and confirmed by the patient. All components of [place] Protocol/PAUSE Rule completed. Erik Dang MD operated in two distinct and integrated capacities as the surgeon and pathologist. Stage I: The patient was placed supine on the operating table. The cancer was identified, outlined with a marker, and verified by the patient. The entire surgical field was prepped with iodine. The surgical site was anesthetized using Lidocaine 1% with epinephrine 1:100,000 buffered with sodium bicarbonate 8.4% in a 1:10 ratio. The area of clinically apparent tumor was debulked with 2mm curette. The layer of tissue was then surgically excised using a #15 blade and was then transferred onto a specimen sheet maintaining the orientation of the specimen. Hemostasis was obtained using monopolar electrodessication. The wound site was then covered with a dressing while the tissue samples were processed for examination. The excised tissue was transported to the [facility] histology laboratory maintaining the tissue orientation. The tissue specimen was relaxed so that the entire surgical margin was in a a single horizontal plane for sectioning and inked for precise mapping. A precise reference map was drawn to reflect the sectioning of the specimen, colored inking of the margins, and orientation on the patient. The tissue was processed using horizontal sectioning ofthe base and continuous peripheral margins. The histopathologic sections were reviewed in conjunction with the reference map. Total blocks: 1 Total slides: 3 Frozen sections were examined by the surgeon. Residual tumor was identified and indicated in red on the reference map, identifying the location where further tissue excision was necessary. Therefore, an additional stage of Mohs Micrographic surgery was deemed necessary. Cell morphology: basaloid nests with peripheral palisading and abundant mucin Pathological pattern: Basal cell carcinoma, nodular Depth of invasion: Dermis Scar tissue: Not Present Perineural invasion: Not Present Inflammation obscuring possible tumor presence: Not Present Stage II The patient was returned to the operating room, and the area prepped in the usual manner. The residual tumor was excised using the reference map as a guide. The specimen was transfered to a labeled specimen sheet maintaining the orientation of the specimen. Hemostasis was obtained and the wound site was covered with a dressing while the tissue was processed for examination. The excised tissue was transported to the [facility] histology laboratory maintaining orientation. The specimen margins were inked for precise mapping and a reference map was prepared for the is additional stage to maintain precise orientation as described above. The tissue was processed using horizontal sectioning of the base and continuous peripheral margins. The histopathologic sections were reviewed in conjunction with the reference map. Total blocks: 1 Total slides: 2 Frozen sections were examined by the surgeon. There were no cancer cells visualized on examination, therefore Mohs surgery was complete. Reconstruction: Advancement Flap PROCEDURE: The wound was debeveled and undermined broadly in all directions to the level of fat. Hemostasis was obtained using monopolar electrodessication. The advancement flap was incised to the level of fat removing a cone of redundant tissue superiorly and inferiorly. The flap was further undermined in all directions. Hemostasis was again obtained. The flap was then advanced into the defect and secured using buried dermal sutures. Redundant areas of tissue were excised using the triangulation technique. The flap wound edges of both the primary and secondary defects were then approximated with buried dermal sutures and the epidermis was then carefully approximated using simple running, monocryl 5-0;prolene 5-0 sutures. The wound was cleansed with saline, and ointment was applied along the wound surface. A sterile pressure dressing of non-adherent gauze was applied and wound care instructions were given verbally and in writing. The patient will return in seven days for suture removal. The patient left the operating suite in stable condition. Repair Size: 6.0x6.6 Sutures Used: monocryl 5-0;prolene 5-0 Dr. Dang performed the entire surgery, and documentation used to initiate this operative report. I entered the information in our [employer] DocFlowsheet with the information provided by Dr. Dang on her handwritten, paper format, surgical worksheet, which was then used to initiate the create of this note. Dr. Dang then reviewed and edited the note as needed to complete the note. Mayuri Valadez LPN Erik Dang MD PROCEDURE/MINOR SURG ICAL ORDERABLES * TX DESTRUCT BENIGN LESION, 1-14 (08/12/2020 10:18 PM CDT) Narrative Kendra Ramos MD - 08/12/2020 10:18 PM CDT Kendra Ramos MD 08/12/2020 10:18 PM Liquid nitrogen was applied for 10-12 seconds to the skin lesion and the expected blistering or scabbing reaction explained. Do not pick at the area. Patient reminded to expect hypopigmented scars from the procedure. Return if lesion fails to fully resolve. Kendra Ramos MD PROCEDURE/HEATHER R SURGICAL ORDERABLES * TX DESTROY PREMALIG LESION, 1ST LESION (08/12/2020 10:18 PM CDT) Kendra De La Fuente MD - 08/12/2020 10:18 PM CDT Kendra Ramos MD 08/12/2020 10:18 PM Liquid nitrogen was applied for 10-12 seconds to the skin lesion and the expected blistering or scabbing reaction explained. Do not pick at the area. Patient reminded to expect hypopigmented scars from the procedure. Return if lesion fails to fully resolve. Kendra Ramos MD PROCEDURE/HEATHER R SURGICAL ORDERABLES * TX TANGNTL BX SKIN SINGLE LES (08/12/2020 10:17 PM CDT) Kendra De La Fuente MD - 08/12/2020 10:17 PM CDT Kendra Ramos MD 08/12/2020 10:18 PM Risks, benefits and alternatives to shave biopsy were discussed with the patient. Verbal consent was obtained. Encounter Diagnoses Name Primary? Neoplasm of uncertain behavior of skin Yes Inflamed seborrheic keratosis AK (actinic keratosis) Lentigines Location: right upper cheek Skin prep: Alcohol Anesthesia: 1% lidocaine with epinephrine Hemostasis: Aluminum chloride Dressing and wound care discussed. Specimen(s) placed in a patient labeled container and sent to [facility]. Patient agrees to phone call for results and message if not available. Kendra Ramos MD Kendra Ramos MD PROCEDURE/HEATHER R SURGICAL ORDERABLES * DERMATOPATHOLOGY (Specimen Count = 1) (08/03/2020 12:00 AM [facility]) Only the most recent of2 resultswithin the time period is included. Case Report Dermatopathology Report Case: [id number] Authorizing Provider: Kendra Ramos MD Collected: 08/03/2020 12:00 AM Ordering Location: [facility] Received: 08/03/2020 02:33 PM Dermatology Pathologist: Kendra Ramos MD Specimen: Skin, right upper cheek 12:43 PM [facility] Final Diagnosis Specimen A. SKIN, right upper cheek: BASAL CELL CARCINOMA, PIGMENTED ([id number]) 12:43 PM [facility] Clinical History Pigmented BCC vs SK vs atypical nevus. 12:43 PM [facility] Gross Description Specimen A: Received is one formalin filled container labeled with the patient's name and designated right upper cheek. The specimen consists of a shave biopsy measuring [id number]. Jar 0. 12:43 PM [facility] DERMATOPATHOLOGY [facility] Microscopic Description Specimen A. SKIN, right upper cheek: There are aggregates of basaloid cells with a high nuclear to cytoplasmic ratio and peripheral palisading. There is abundant melanin. 12:43 PM [facility] Disclaimer An external and internal positive and negative controls are appropriate for the histochemical, immunohistochemical and immunofluorescence stain(s) in this case (if any), except where stated explicitly. The performance characteristics of the stain(s) cited in this report were developed and its performance characteristic determined by the Dermatopathology Laboratory at [facility], directed by Dr. Marek Shea. These tests need not be, and therefore are not, approved by the [place] Food and Drug Administration. The tests are used for clinical purposes. Billing Codes Specimen Charges Stain Charges 21917 1 12:43 PM [facility] DERMATOPATH[facility]Y [facility] Embedded Images 12:43 PM [facility] DERMATOPATH[facility]Y [facility] Pathology/Cytolog y TISSUE SPECIMEN FROM SKIN / Unknown 08/03/2020 08/03/2020 2:33 PM [facility] Kendra Ramos MD LAB - PATHOLOG Y/CYTOLOGY ORDERABLES DERMATOPATHOLOGY LABORATORY [facility] - Department of Dermatology [address], [address] [phone] * TX DESTRUCT BENIGN LESION, 1-14 (02/03/2020 12:05 PM CDT) Narrative Kendra Ramos MD - 02/03/2020 12:05 PM CDT Ciro Bergeron MD 02/03/2020 12:06 PM Diagnosis and treatment options discussed. Cryotherapy (Liquid Nitrogen) to 1 lesion for 4-6 seconds. Number of cycles: 2. Wound care reviewed. Ciro Bergeron MD [facility] Dermatology Resident PGY-III Kendra Ramos MD PROCEDURE/HEATHER R SURGICAL ORDERABLES * PATHOLOGY/GENETICS HISTORICAL-ONBASE (04/10/2017) 04/10/2017 Historical Provider LAB - CHEMISTRY O RDERABLES [facility] [address] Care Teams Labor Representative Relationship Specialty Start Date End Date Jak Talamantes MD [address] [place] [address] PCP - General 04/17/14
--- OUTSIDE RECORDS SUMMARY | 2024-08-04 08:23 | XMS_ITS | Referral Summary ---
Author Organization [facility] Address [address] [place] [address] Care Team Providers Care Grade Teacher Name Role Phone Jak Talamantes MD Primary Care Provider [phone] Source Comments [facility],non-owned Affiliates and Associated Physician Practices is amultiple site organization consisting of ambulatory clinics and hospital sitesin [place], [place], [place] and [place]. This disclosure is being madepursuant to the Care Everywhere program and may not contain all information available regarding this patient. Last updated 18.[facility] Allergies No known active allergies Medications * [...] (two) tablets by mouth once daily Active [place]-3 Fatty Acids (FISH OIL) 1000 MG capsule [...] Description 12/16/2024 9:40 AM CDT Office Visit [facility] - Dermatology [address] [place] [id number] Kendra Ramos MD [address] [place] [address] Care Teams Grade Teacher Relationship Specialty Start Date End Date Jak Talamantes MD [address] [place] [address] [facility] - General 04/17/14
--- OUTSIDE RECORDS SUMMARY | 2024-08-04 08:23 | XMS_ITS | Clinical Summary ---
Author Organization [facility] Address [address] [place] [address] Care Team Providers Care Crew Car Driver Name Role Phone Jak Talamantes MD Primary Care Provider Allergies No known active allergies Medications omeprazole 40 MG capsule Take 40 mg by mouth daily. Active vitamin B-12 (CYANOCOBALAMIN ) 1000 mcg tablet Take 2,000 mcg by mouth daily. Active multi vitamin/mineral s tablet Take 1 tablet by mouth daily. Active Probiotic Product (PROBIOTIC ADVANCED) Cap Take 1 capsule by mouth daily. Active naproxen sodium 220 MG tablet Take 440 mg by mouth daily. Active vitamin D3, cholecalciferol , 5000 UNITS capsule Take 1 capsule by mouth daily. Active cranberry 450 MG Tab tablet Take 450 mg by mouth daily. Active fish oil 1000 MG Cap capsule Take 2,400 mg by mouth daily. Active Turmeric 400 MG Cap Take 1 capsule by mouth daily. Active aspirin 81 MG tablet Take 81 mg by mouth. 7 Active nitrofurantoin, macrocrystal-mo nohydrate, 100 MG capsule TK ONE C PO BID WHEN HAVING SYMPTOMS OF URINARY TRACT INFECTION 9 Active Family History Medical History Relation Comments Diabetes Brother Heart Disease Father Stroke Father Heart Disease Mother Cancer Sister 1 Diabetes Sister 1 Kidney Disease Sister 1 Diabetes Sister 2 Kidney Disease Sister 2 Diabetes Sister 3 Relation Status Comments Brother Alive Father Mother Sister 1 Sister 2 Alive Sister 3 Alive Social History Tobacco Use Types Packs/Day Years Used Date Smoking Tobacco: Never Smokeless Tobacco: Never Alcohol Use Standard Drinks/Week Comments Yes 0 (1 standard drink = 0.6 oz pur e alcohol) socially Comments Unknown Sex and Gender Information Value Date Recorded Sex Assigned at Not on file Legal Sex Female 6:15 PM CDT Gender Identity Not on file Sexual Orientation Not on file Last Filed Vital Signs Vital Sign Reading Time Taken Comments Blood Pressure 109/74 03/19/2021 10:02 AM CDT Pulse 69 03/19/2021 10:02 AM CDT Temperature 36.3 C (97.4 F) 03/19/2021 9:45 AM CDT Respiratory Rate 16 03/19/2021 10:02 AM CDT Oxygen Saturation 97% 03/19/2021 10:02 AM CDT Inhaled Oxygen Concentration - - Weight 90.7 kg (200 lb) 03/18/2021 1:54 PM CDT Height 160 cm (5' 3 ) 03/18/2021 1:54 PM CDT Body Mass Index 35.43 03/18/2021 1:54 PM CDT Plan of Treatment Health Maintenance Due Date Last Done Comments Hepatitis C 1970 DTaP, Tdap and Td Vaccines ( 1 - Tdap) 11/21/1971 Mammogram Screening 1992 Annual Medicare Wellness Visit 2017 Dexa Scan (General) 2017 Pneumococcal Vaccine: 65+ Years (1 of 1 - PCV) 2017 Zoster Vaccines (2 of 2) 09/04/2019 07/10/2019 COVID-19 Vaccine (2 - 2023-2 5 season) 2024 07/17/2020 Influenza Adult (#1) 2024 RSV Immunization or 60+ Years (1 - 1-dose 75+ series) 11/21/2027 Colorectal Cancer Screening Colonoscopy (10 Years) 03/19/2031 03/19/2021, 03/19/2021 Meningococcal B Vaccine Aged Out No l onger eligible based on patient's age to complete this topic Meningococcal Vaccine Aged Out No alexa clayton eligible based on patient's age to complete this topic RSV Immunizations Under 20 Months Aged Out No longer eligible b ased on patient's age to complete this topic Procedures Procedure Name Priority Date/Time Associated Diagnosis Comments COLONOSCOPY Routine 03/19/2021 9:59 AM CDT from Last 3 Months or Most Recently Relevant to Health Maintenance Results * Colonoscopy (03/19/2021 9:59 AM CDT) Dl Ordonez MD - 03/19/2021 9:59 AM CDT Dl Kwan MD 03/19/2021 10:06 AM DL KWAN MD, FACG, FACP COLONOSCOPY 03/19/2021 INDICATION: Abdominal pain, altered bowel habits and hematochezia. POST-OP: Four rectal polyps removed. SEDATION: Per Anesthesia PREP: Good. With the patient in the left lateral decubitus position, the Olympus [id number] colonoscope was introduced into the rectum and advanced easily to the Terminal Ileum. Careful inspection of the mucosa was made upon insertion and withdrawal of the endoscope. FINDINGS: Terminal ileum: distal 5 cm normal. Cecum, Ascending, Transverse, Descending, Sigmoid colon: normal. Rectum including retroflexion: 7 mm sessile polyp x 4 removed with cold biopsy forceps without bleed. No masses, AVMs, colitis or diverticulosis seen. No complications, blood loss or implants. ASSESSMENT AND PLAN: A. Four polyps removed: if adenomatous repeat colonoscopy in three years, otherwise screening colonoscopy in 10 years. B. Hematochezia: - Likely secondary to hemorrhoids not seen on endoscopy - Treat symptomatically C. Abdominal pain, altered bowel habits: - Likely functional; improved on prn Levsin - Unremarkable colonoscopy - Script given for Levbid 0.375 mg po BID Thank you for allowing me to care for your patient. She will follow-up with my office in one month. Dl Kwan M.D. Cc: Dr. Alex Talamantes us Dl Kwan MD GI PROCEDURE ORDERABLES Fin al Result from Last 3 Months or Most Recently Relevant to Health [place] [address] MEDICARE [employer] Care Teams Crew Car Driver Relationship Specialty Start Date End Date Jak Talamantes MD [address] [place], [place] [id number] PCP - General 11/29/13
[2024-08-04 08:41] LABS: Albumin Level 3.8 g/dL (3.5-5.1); Anion Gap 6 mmol/L (4-12); Blood Urea Nitrogen 19 mg/dL (7-17); Carbon Dioxide 28 mmol/L (22-30); Chloride 105 mmol/L (98-107); Estimated Glomerular Filt Rate > 60; Glucose 103 mg/dL (65-110); Phosphorus 3.5 mg/dL (2.5-4.5); Potassium 4.2 mmol/L (3.4-5.0); Sodium 139 mmol/L (137-145); Uric Acid 5.5 mg/dL (2.5-7.5)
[2024-08-04 08:50] LABS: Add Urine Microscopic? YES; Appearance Urine Clear (Clear); Bacteria Urine None Seen /hpf; Bilirubin Urine Negative (Negative); Blood Urine Negative (Negative); Color Urine Dark Yellow (Yellow); Glucose Urine UA Negative (Negative); Ketones Urine Negative (Negative); Leukocyte Esterase Ur 1+ LEU/UL (Negative); Nitrate Urine Negative (Negative); Non Pathogenic Casts 0-2; Protein Urine Negative (Negative); Specific Grav Ur 1.018 (1.001-1.035); Squamous Epithelial Cell Urine Occasional /hpf (Few); Urobilinogen Urine 0.2 mg/dL (<2.0)
== END 2024-08-04 08:15 | disposition home or self-care (01) ==
PROVIDERS: PCP Family Medicine; Visit Provider Internal Medicine Nephrology
DX: N20.0 Calculus of kidney (principal); Z87.448 Personal history of other diseases of urinary system
CPT/HCPCS: 36415; 74018; 80069; 81001; 84550

== ENCOUNTER 2025-04-07 09:02 | Outpatient (CLI) | payer MEDICARE, OTHER, SELFPAY ==
--- OUTSIDE RECORDS SUMMARY | 2025-04-07 09:39 | XMS_ITS | Clinical Summary ---
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
--- OUTSIDE RECORDS SUMMARY | 2025-04-07 09:39 | XMS_ITS | Clinical Summary ---
Author Organization [facility] Address [address] [place] [address] Phone Care Team Providers Care Casino Floorperson Name Role Phone Jak Talamantes MD Primary Care Provider [phone] Allergies No known active allergies Medications omega-3 (FISH OIL) 1000 MG capsule 05/02/2015 Active Cholecalciferol (VITAMIN D3) 5000 units capsule 05/02/2015 Active Flaxseed, Linseed, (FLAX SEED OIL) 1000 MG capsule 05/02/2015 Active aspirin 81 MG tablet Take 81 mg by mouth 03/18/2017 Active omeprazole (PriLOSEC) [address] capsule 04/29/2019 Activ e Multiple Vitamins-Minera ls (MULTI VITAMIN/MINERAL S) tablet Take 1 tablet by mouth daily Active naproxen sodium (ALEVE) 220 MG tablet Take 440 mg by mouth daily Active TURMERIC PO Take 1 capsule by mouth daily Active niacin 500 MG tablet Take 500 mg by mouth 03/18/2017 Active Cranberry 200 MG capsule 08/10/2018 Active Saccharomyces boulardii (DAILY PROBIOTIC SUPPLEMENT PO) 11/30/2019 Acti ve ammonium lactate (AMLACTIN) 12 % cream Apply [...] kidney 10/31/2013 Essential (primary) hypertension 10/31/2013 Immunizations Immunization Administration Dates Next Due Influenza TIV (IM) [...] = 0.6 oz pur e alcohol) occasionally Comments Unknown Sex and Gender Information Value Date Recorded Sex Assigned at Female 11/09/2019 8:51 AM MDT Legal Sex Female 9:21 AM [facility] Gender Identity Female 11/09/2019 8:51 AM MDT [...] 9:39 AM CDT Height 162.6 cm (5' 4) 08/12/2021 9:39 AM CDT Body Mass Index 32.1 08/12/2021 9:39 AM CDT Plan of Treatment Health Maintenance Due Date Last Done Comments Pneumococcal PPSV23/PCV13 65 + Years / Low and Medium Risk (2 of 3 - PCV) 07/10/2020 07/10/2019 Influenza Vaccine (#1) [address] [place] [address] MEDICARE [facility] Care Teams Casino Floorperson Relationship Specialty Start Date End Date Jak Talamantes MD [address] [place] [address] PCP - General Family Medicine 05/18/19
--- OUTSIDE RECORDS SUMMARY | 2025-04-07 09:39 | XMS_ITS | Clinical Summary ---
Author Organization [facility] Address [address] [place] [address] Care Team Providers Care Clamp Operator Name Role Phone Jak Talamantes MD Primary Care Provider [phone] Source Comments [facility],non-owned Affiliates and Associated Physician Practices is amultiple site organization consisting of ambulatory clinics and hospital sitesin [place], [place] and [place]. This disclosure is being madepursuant to the Care Everywhere program and may not contain all information available regarding this patient. Last updated 18.[facility] Allergies No known active allergies Medications * Be aware that medications may not be up to date on this document. Alwaysverify current medications with the patient. aspirin (ASPIRIN) 81 MG tablet Take 1 (one) tablet by mouth DAILY Active Probiotic Product (ACIDOPHILUS/GO AT MILK) CAPS Take by mouth daily with dinner. Active Turmeric 450 MG Take by mouth daily with dinner. Active Cyanocobalamin (VITAMIN B 12) 100 MCG Take by mouth daily with dinner. Active vitamin D3 (CHOLECALCIFERO L) 125 MCG (5000 UT) capsule Take 1 (one) capsule by mouth once daily Active cranberry fruit 450 MG tablet Take 1 (one) tablet by mouth once daily Active Vitamins/Minera ls TABS Take 1 (one) tablet by mouth once daily Active naproxen sodium (ALEVE) 220 MG tablet Take 2 (two) tablets by mouth once daily Active Mozelle-3 Fatty Acids (FISH OIL) 1000 MG capsule Take 2,400 mg by mouth once daily Active omeprazole (PRILOSEC) 40 MG capsule Take 1 (one) capsule by mouth daily before breakfast Active hyoscyamine (LEVSIN) 0.125 MG IR tablet TAKE 1 TABLET BY MOUTH BEFORE MEALS AND AT BEDTIME 2 Active ammonium lactate (Lac-Hydrin) 12 % creamIndication s:Rash Apply to affected area on legs two times daily. 30 day supply. 385 g 11 3 Active triamcinolone acetonide (Kenalog) 0.1 % ointmentIndicat ions:Rash Apply to affected areas on the legs twice daily as needed for itch. 30 day supply. 80 g 1 3 Active clobetasol (Temovate) 0.05 % ointmentIndicat ions:Dermatitis Apply to affected areas twice daily as needed. 30 days supply. 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 Gender Identity Not on file Sexual Orientation Not on file Last Filed Vital Signs Vital Sign Reading Time Taken Comments Blood Pressure 168/92 08/21/2020 12:06 PM CDT Pulse 78 08/21/2020 12:06 PM CDT Temperature - - Respiratory Rate - - Oxygen Saturation - - Inhaled Oxygen Concentration - - Weight 90.7 kg (200 lb) 08/21/2020 7:19 AM CDT Height 162.6 cm (5' 4) 08/21/2020 7:19 AM CDT Body Mass Index 34.33 08/21/2020 7:19 AM CDT Plan of Treatment Upcoming Encounters Date Type Department Care Team (Late st Contact Info) Description 12/15/2025 9:40 AM CDT Office Visit [facility] - Dermatology [address] [place] [address], [place] [id number] Kendra Ramos MD [address] [place] [address] [address] [place] [address] Health Maintenance Due Date Last Done Comments BONE DENSITY TESTING 1952 COLOGUARD (AGES 45-75) - COL ON CA SCREENING 1952 CT COLONOGRAPHY - COLON CA SCREENING 1952 FIT - COLON CA SCREENING 1952 FLEX SIG - COLON CA SCREENING 1952 LIPID TESTING 1950 MAMMOGRAM 1950 MEDICARE AWV 12 MONTHS 1952 HEPATITIS C SCREENING 11/16/1970 DTAP/TDAP/TD VACCINES (1 - Tdap) 11/21/1971 PNEUMOCOCCAL VACCINE 50+ (1 of 1 - PCV) 2002 ZOSTER VACCINE (1 of 2) 2002 DEPRESSION SCREENING 06/01/2024 COVID-19 VACCINE (1 - 2023-2 5 season) 2025 INFLUENZA VACCINE (#1) 2025 Respiratory Syncytial Virus (RSV) Vaccine Pt: or over 60 yrs (1 - 1-dose 75+ series) 11/21/2027 COLON MONITORING 03/19/2031 03/19/2021 COLONOSCOPY - COLON CA SCREENING 03/19/2031 03/19/20 Colorectal Cancer Screening 03/19/2031 HEPATITIS B VACCINE Aged Out No longe r eligible based on patient's age to complete this topic HIB VACCINE Aged Out No longer eligi ble based on patient's age to complete this topic HPV VACCINE Aged Out No longer eligi ble based on patient's age to complete this topic MENINGOCOCCAL (Group B) VACC INE SHARED DECISION-MAKING Aged Out No longer eligibl e based on patient's age to complete this topic MENINGOCOCCAL GROUPS A/C/Y/W VACCINE Aged Out No longer eligible b ased on patient's age to complete this topic [place] [address] MEDICARE [facility] [place] [address] MEDICARE Care Teams Clamp Operator Relationship Specialty Start Date End Date Jak Talamantes MD [address] [place] [address] PCP - General 04/17/14
--- OUTSIDE RECORDS SUMMARY | 2025-04-07 09:39 | XMS_ITS | Clinical Summary ---
Author Organization [facility] Address [address] [place] [address] Care Team Providers Care Social Studies Department Chair Name Role Phone Jak Talamantes MD Primary Care Provider [phone] Allergies No known active allergies Medications omeprazole [...] 1:54 PM CDT Height 160 cm (5' 3) 03/18/2021 1:54 PM CDT Body Mass Index 35.43 03/18/2021 1:54 PM CDT Plan of Treatment Health Maintenance Due Date Last Done Comments Hepatitis C 1970 DTaP, Tdap and Td Vaccines ( 1 - Tdap) 11/21/1971 Mammogram Screening 1992 Pneumococcal Vaccine: 50+ Years (1 of 1 - PCV) 2002 Annual Medicare Wellness Visit 2017 Dexa Scan (General) 2017 Zoster Vaccines (2 of 2) 09/04/2019 07/10/2019 COVID-19 Vaccine (2 - 2024-2 6 season) 2025 07/17/2020 Influenza Adult (#1) 2025 RSV Immunization or 60+ Years (1 - 1-dose 75+ series) 11/21/2027 Colorectal Cancer Screening Colonoscopy (10 Years) 03/19/2031 03/19/2021, 03/19/2021 Hepatitis A Vaccines Aged Out No long er eligible based on patient's age to complete this topic Meningococcal B Vaccine Aged Out No l [...] the left lateral decubitus position, the Olympus [id number] colonoscope was introduced into the rectum and [...] Relevant to Health [place] [address] MEDICARE [facility] Care Teams Social Studies Department Chair Relationship Specialty Start Date End Date Jak Talamantes MD [address] [address] PCP - General 11/29/13
[2025-04-07 10:08] LABS: Albumin Level 4.2 g/dL (3.5-5.1); Anion Gap 6 mmol/L (4-12); Blood Urea Nitrogen 22 mg/dL (7-17); Calcium 9.3 mg/dL (8.4-10.2); Carbon Dioxide 27 mmol/L (22-30); Chloride 105 mmol/L (98-107); Estimated Glomerular Filt Rate 59; Glucose 98 mg/dL (65-110); Potassium 4.5 mmol/L (3.4-5.0); Sodium 138 mmol/L (137-145); Uric Acid 5.0 mg/dL (2.5-7.5)
[2025-04-07 10:21] LABS: Add Urine Microscopic? YES; Appearance Urine Cloudy (Clear); Glucose Urine UA Negative (Negative); Leukocyte Esterase Ur 3+ LEU/UL (Negative); Nitrate Urine Positive (Negative); Non Pathogenic Casts 0-2; Specific Grav Ur 1.016 (1.001-1.035)
== END 2025-04-07 09:03 | disposition home or self-care (01) ==
PROVIDERS: PCP Family Medicine; Visit Provider Internal Medicine Nephrology
DX: N20.0 Calculus of kidney (principal)
CPT/HCPCS: 36415; 80069; 81001; 84550

== ENCOUNTER 2025-04-12 13:44 | Outpatient (CLI) | payer MEDICARE, OTHER, SELFPAY ==
--- OUTSIDE RECORDS SUMMARY | 2025-04-12 14:48 | XMS_ITS | Clinical Summary ---
Author Organization [facility] Address [address] [place] [address] Phone Care Team Providers Care Desktop Engineer Name Role Phone Jak Talamantes MD Primary Care Provider [phone] Allergies No known active allergies Medications omega-3 [...] AM MDT Legal Sex Female 9:21 AM [facility] Gender Identity Female 11/09/2019 8:51 AM [...] Influenza Vaccine (#1) [address] [place] [address] MEDICARE [facility] Care Teams Desktop Engineer Relationship Specialty Start Date End Date Jak Talamantes MD [address] [place] [address] PCP - General Family Medicine 05/18/19
--- OUTSIDE RECORDS SUMMARY | 2025-04-12 14:48 | XMS_ITS | Clinical Summary ---
Author Organization [facility] Address [address] [place] [address] Care Team Providers Care Lead Furnace Operator Name Role Phone Jak Talamantes MD [...] the left lateral decubitus position, the Olympus [id number] colonoscope was introduced into the rectum and [...] Relevant to Health [place] [address] MEDICARE [facility] Care Teams Lead Furnace Operator Relationship Specialty Start Date End Date Jak Talamantes MD [address] [address] PCP - General 11/29/13
--- OUTSIDE RECORDS SUMMARY | 2025-04-12 14:48 | XMS_ITS | Clinical Summary ---
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
--- OUTSIDE RECORDS SUMMARY | 2025-04-12 14:48 | XMS_ITS | Clinical Summary ---
Author Organization [facility] Address [address] [place] [address] Care Team Providers Care Retort Forker Name Role Phone Jak Talamantes MD Primary Care Provider [phone] Source Comments [facility],non-owned Affiliates and Associated Physician Practices is amultiple site organization consisting of ambulatory clinics and hospital sitesin [place], [place], [place] and [place]. This disclosure is being madepursuant to the Care Everywhere program and may not contain all information available regarding this patient. 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 Gender Identity Not on file Sexual Orientation [...] Office Visit [facility] - Dermatology [address] [place] [address], [facility] [place] [id number] Kendra Ramos MD [address] [place] [address] [address] [place] [address] Health Maintenance Due Date Last Done Comments [...] age to complete this topic [place] [address] [facility] [place] [address] MEDICARE Care Teams Retort Forker Relationship Specialty Start Date End Date Jak Talamantes MD [address] [place] [address] PCP - General 04/17/14
[2025-04-12 14:51] LABS: Add Urine Microscopic? YES; Appearance Urine Cloudy (Clear); Glucose Urine UA Negative (Negative); Leukocyte Esterase Ur 3+ LEU/UL (Negative); Need Manual Microscopic Reviewed; Nitrate Urine Positive (Negative); Specific Grav Ur 1.019 (1.001-1.035)
== END 2025-04-12 13:45 | disposition home or self-care (01) ==
PROVIDERS: PCP Family Medicine; Visit Provider Internal Medicine Nephrology
DX: R82.81 Pyuria (principal); N20.0 Calculus of kidney
CPT/HCPCS: 81001; 87077; 87086; 87186